=== PATIENT | female | born 1945 | race Caucasian/White ===

== ENCOUNTER 2021-07-20 09:41 | Emergency (ER) | payer MEDICARE, SELFPAY ==
[2021-07-20 09:59] VITALS: BP 208/86; PULSE 105; RESP 14; TEMP 36.3; O2SAT 98
--- NOTE | 2021-07-20 10:04 | ECG_ITS ---
[facility] Test Date: 2021-07-20 Pat Name: Nevin Ahumada Department: Room: Gender: Female Roofing Layer: : 1945 Requested By: Jason Driscoll Order Number: [id number] Reading MD: ALBERT ALEX Measurements Intervals [place] Rate: 79 P: 33 IL: 163 QRS: 3 QRSD: 85 T: 50 QT: 352 QTc: 405 Interpretive Statements SINUS RHYTHM MINIMAL VOLTAGE CRITERIA FOR LVH, CONSIDER NORMAL VARIANT [MEETS CRITERIA IN ONE OF: R(aVL), S(V1), R(V5), R(V5/V6)+S(V1)] Compared to ECG 07/30/2019 20:18:14 No significant changes Electronically Signed On 07-20-2021 15:40:42 CDT by ALBERT ALEX [email or web address] [email or web address].[employer]/store/[id number]
--- NOTE | 2021-07-20 10:22 | XR_ITS ---
WS: [id number] Portable AP upright chest, 07/20/2021 Clinical Data: chest pain Comparison: PA and lateral chest, 07/31/2015. Findings: No nodules, masses or effusions are seen. The heart is normal. The pulmonary vascularity is not increased. No pneumonia or pneumothorax is seen. The aortic arch and descending aorta show calci fication and mild tortuosity. There is a minimal dextroscoliosis of the lower thoracic spine. Monitor leads are on the chest wall. XR/XR chest 1V portable [id number] Impression: Atherosclerosis.
--- NOTE | 2021-07-20 10:23 | W.ED.CHESTPA ---
HPI - Chest Pain General: Chief Complaint: Chest Pain Stated Complaint: Heart Problems Time Seen by Provider: 07/20/21 09:54 History of Present Illness: HPI narrative: 75-year-old female comes in complaining of palpitations. She is. A Holter monitor next week she is also supposed to have a stress test and echo. She feels like it has been getting worse and was directed to the emergency room by her primary kiln labourer. MD complaint: chest pain and chest discomfort Onset (ago): week(s) Timing of current episode: episodic Prior episodes: Yes Onset: during rest Pain location: substernal and left chest Pain radiation: none Severity: mild Quality: aching and heaviness Relieving factors: nothing Exacerbating factors: nothing Associated symptoms: Deny abdominal pain, diaphoresis, dyspnea, fever(s), leg edema, nausea, palpitations, sense of impending doom, syncope or vomiting Review of Systems Const: Denies: fever(s) or diaphoresis ENMT: Denies: throat pain, ear or mastoid pain, nasal discharge or nasal congestion Card: Denies: palpitations or syncope Resp: Denies: dyspnea GI: Denies: abdominal pain, nausea or vomiting : Denies: flank pain, difficulty voiding, dysuria, urinary frequency or urinary urgency Skin/Breast: Denies: rash or pruritus Physical Exam Const: COMMON NORMALS: no acute distress GENERAL APPEARANCE: cooperative and comfortable ORIENTATION/CONSCIOUSNESS: Yes awake, Yes oriented to person, Yes oriented to place and Yes oriented to time HENMT: COMMON NORMALS: normocephalic, atraumatic and hearing grossly normal bilaterally HEAD & SCALP: normocephalic and atraumatic Neck/C-Spine: COMMON NORMALS: no JVD Resp: COMMON NORMALS: normal respiratory effort, No retractions, No use of accessory muscles and clear to auscultation bilaterally AUSCULTATION: clear to auscultation bilaterally Cardio: COMMON NORMALS: no JVD, regular rate, regular rhythm and No murmurs present (Cardio) RATE: regular rate RHYTHM: regular rhythm GI: COMMON NORMALS: Soft to palpation and No hepatosplenomegaly present AUSCULTATION: Yes normoactive bowel sounds PALPATION: Yes Soft to palpation, No Tenderness to palpation present (GI), No Guarding due to palpation present (GI) and Yes No hepatosplenomegaly present Extremity: COMMON NORMALS: normal to inspection, capillary refill normal, no clubbing, cyanosis or edema, no calf tenderness and no pedal edema Neuro: SENSORIUM/ORIENTATION: Yes oriented to person, Yes oriented to place and Yes oriented to time Skin: COMMON NORMALS: no rashes or lesions noted GENERAL SKIN EXAM: no rashes or lesions noted Course Vital Signs: Vital signs: Vital Signs Temperature 98.1 F 07/20/21 14:59 Pulse Rate 64 07/20/21 14:59 Respiratory Rate 18 07/20/21 14:59 Blood Pressure 168/98 07/20/21 14:59 Pulse Oximetry 98 07/20/21 14:59 MDM - Chest Pain MDM Narrative: Medical decision making narrative: Labs imaging and EKG reviewed as found on the chart. Discussed with the patient. Troponins negative think we can safely discharge home at this point reviewed her medicine list would like to have her on aspirin daily take 81 mg daily. She already has sublingual nitro. Complete the work-up as previously scheduled as an for an outpatient by her primary care physician worsening change symptoms return to emergency room Lab Data: Labs: Lab Results 07/20/21 07/20/21 07/20/21 10:42 10:42 10:42 WBC 5.7 10^3/uL 10^3/ uL (4.0-10.0) RBC 4.28 10^6/uL 10^6 /uL (4.1-5.3) Hgb 12.4 g/dL g/dL (11.5-15.3) Hct 39.2 % % (37.0-47.0) MCV 91.6 fl fl (81-99) MCH 29.0 pg pg (28.0-34.0) MCHC 31.6 g/dL g/dL (30.0-36.0) RDW 14.6 % % (12.1-15.1) Plt Count 380 10^3/cmm 10^3 /cmm (130-400) MPV 9.4 fL fL (7.4-10.4) Neut % (Auto) 44.3 % % Lymph % (Auto) 46.3 % % [place] % (Auto) 6.2 % % Eos % (Auto) 2.3 % % Baso % (Auto) 0.7 % % Neut # (Auto) 2.51 10^3/uL 10^3 /uL (1.8-7.7) Lymph # (Auto) 2.6 10^3/uL 10^3/ uL (0.8-4.8) Weston # (Auto) 0.4 10^3/uL 10^3/ uL (0.2-0.9) Eos # (Auto) 0.1 10^3/uL 10^3/ uL (0.0-0.8) Baso # (Auto) 0.0 10^3/uL 10^3/ uL (0.0-0.1) Nucleated RBC % (a uto) 0 % % Nucleated RBCs # 0.0 /100WBC /100W BC Sodium 139 mmol/L mmol/L (136-145) Potassium 3.9 mmol/L mmol/L (3.5-5.1) Chloride 100 mmol/L mmol/L (98-107) Carbon Dioxide 27 mmol/L mmol/L (22-29) Anion Gap 15.9 (5-19) BUN 17 mg/dL mg/dL (8-23) Creatinine 0.6 mg/dL mg/dL (0.5-0.9) GFR Calculation Not Reportable Glucose 95 mg/dL mg/dL (65-115) Calculated Osmolal ity 289 mOsm/kg mOsm/ kg (285-295) Calcium 9.6 mg/dL mg/dL (8.5-10.5) Total Bilirubin 0.4 mg/dL mg/dL (0.15-1.2) AST 19 U/L U/L (0-32) ALT 10 U/L U/L (0-33) Alkaline Phosphata se 89 IU/L IU/L (35-105) Creatine Kinase 69 U/L U/L (26-192) Troponin T Baselin e 8 ng/L ng/L (0-10) Troponin T 120 Min [place] Troponin T Total Protein 7.5 g/dL g/dL (6.6-8.7) Albumin 4.3 g/dL g/dL (3.5-5.2) Globulin 3.2 g/dL g/dL (1.3-4.6) Lipase 20 U/L U/L (13-60) 07/20/21 12:50 WBC RBC Hgb Hct MCV MCH MCHC RDW Plt Count MPV Neut % (Auto) Lymph % (Auto) [place] % (Auto) Eos % (Auto) Baso % (Auto) Neut # (Auto) Lymph # (Auto) [place] # (Auto) Eos # (Auto) Baso # (Auto) Nucleated RBC % (a uto) Nucleated RBCs # Sodium Potassium Chloride Carbon Dioxide Anion Gap BUN Creatinine GFR Calculation Glucose Calculated Osmolal ity Calcium Total Bilirubin AST ALT Alkaline Phosphata se Creatine Kinase Troponin T Baselin e Troponin T 120 Min [place] 6.91 ng/L ng/L (0-10) Delta Troponin T -1.09 ABS# L ABS# (0-10) Total Protein Albumin Globulin Lipase Discharge Plan Discharge Patient Disposition: Home Clinical Impression: Atypical chest pain, Heart palpitations Condition: Stable Prescriptions: New aspirin 81 mg tablet,delayed release (DR/EC) 81 mg PO DAILY Qty: 30 RF: 0 Discharge Orders: Discharge ED (Routine); Ordered 07/20/21 Ordered By: Jason Cornelius Referrals: Fred Gentile MD [Primary Care Provider] - Discharge Diet: Usual diet Discharge Activity: Limit activity as instructed Patient Instructions: Opioid Safety Activity Restrictions/Additional Instructions: Follow-up with scheduled work-up that Dr. Gentile has arranged for. If you have worsening symptoms you can return to the emergency room. Take 1 baby aspirin daily. Coding Level of Care Code ED Acoustical Installer for Delia Fwavani Exam Comprehensive
[2021-07-20 10:32] VITALS: BP 196/73; PULSE 82; RESP 19; O2SAT 100
--- NOTE | 2021-07-20 10:36 | PC.NURSE ---
PATIENT CONNECTED TO PEARL RESTORER.
[2021-07-20 10:50] LABS: Basophils % 0.7 %; Eosinophils # 0.1 10^3/uL (0.0-0.8); Eosinophils % 2.3 %; Hematocrit 39.2 % (37.0-47.0); Hemoglobin 12.4 g/dL (11.5-15.3); Lymphocytes # 2.6 10^3/uL (0.8-4.8); Lymphocytes % 46.3 %; Mean Corpuscular HGB Conc 31.6 g/dL (30.0-36.0); Mean Corpuscular Volume 91.6 fl (81-99); Mean Platelet Volume 9.4 fL (7.4-10.4); Monocytes # 0.4 10^3/uL (0.2-0.9); Monocytes % 6.2 %; Neutrophils # 2.51 10^3/uL (1.8-7.7); Neutrophils % 44.3 %; Nucleated Red Blood Cells % 0 %; Platelet Count 380 10^3/cmm (130-400); Red Blood Count 4.28 10^6/uL (4.1-5.3); Red Cell Distribution Width 14.6 % (12.1-15.1); White Blood Count 5.7 10^3/uL (4.0-10.0)
[2021-07-20 11:09] LABS: Alanine Aminotransferase 10 U/L (0-33); Albumin Level 4.3 g/dL (3.5-5.2); Alkaline Phosphatase 89 IU/L (35-105); Aspartate Amino Transferase 19 U/L (0-32); Blood Urea Nitrogen 17 mg/dL (8-23); Calcium 9.6 mg/dL (8.5-10.5); Carbon Dioxide 27 mmol/L (22-29); Chloride 100 mmol/L (98-107); Creatine Phosphokinase 69 U/L (26-192); Globulin 3.2 g/dL (1.3-4.6); Glucose 95 mg/dL (65-115); Lipase 20 U/L (13-60); Osmolality Calculated 289 mOsm/kg (285-295); Sodium 139 mmol/L (136-145); Total Bilirubin 0.4 mg/dL (0.15-1.2); Total Protein 7.5 g/dL (6.6-8.7)
[2021-07-20 11:11] LABS: Troponin(5th) Baseline 8 ng/L (0-10)
[2021-07-20 11:21] VITALS: BP 190/74; PULSE 64; RESP 17; O2SAT 98
[2021-07-20 11:23] LABS: Anion Gap 15.9 (5-19); Potassium 3.9 mmol/L (3.5-5.1)
--- NOTE | 2021-07-20 12:22 | ECG_ITS ---
[facility] Test Date: 2021-07-20 Pat Name: Nevin Ahumada Department: Room: Gender: Female Sdc Teacher: : 1945 Requested By: Jason Driscoll Order Number: [id number] Reading MD: ALBERT ALEX Measurements Intervals [place] Rate: 65 P: 16 IA: 170 QRS: 0 QRSD: 96 T: 14 QT: 404 QTc: 421 Interpretive Statements SINUS RHYTHM Compared to ECG 07/20/2021 10:08:31 No significant changes Electronically Signed On 07-20-2021 15:42:10 CDT by ALBERT ALEX [id number]
[2021-07-20 12:24] VITALS: BP 172/72; PULSE 61; RESP 17; O2SAT 99
[2021-07-20 12:57] VITALS: BP 172/72; PULSE 74; RESP 18; O2SAT 98
[2021-07-20 13:21] LABS: Troponin 5 2HR 6.91 ng/L (0-10)
[2021-07-20 13:27] LABS: Troponin 5 2HR Delta -1.09 ABS# (0-10)
[2021-07-20 14:59] VITALS: BP 168/98; PULSE 64; RESP 18; TEMP 36.7; O2SAT 98
== END 2021-07-20 15:01 | disposition home or self-care (01) ==
PROVIDERS: Emergency Provider Family Medicine; PCP Family Medicine
DX: R07.89 Other chest pain (principal); R00.2 Palpitations
CPT/HCPCS: 71045; 80053; 82550; 83690; 84484; 85025; 93005; 99284

== ENCOUNTER 2021-08-08 08:21 | Outpatient (CLI) | payer MEDICARE, SELFPAY ==
[2021-08-08 08:34] VITALS: BMI 32.7
--- NOTE | 2021-08-08 08:34 | ECG_ITS ---
[facility] Test Date: 2021-08-08 Pat Name: Nevin Ahumada Department: Room: Gender: Female Carrier Driver: : 1945 Requested By: Fred Pires Order Number: [id number] Pj MD: Festus Loyola M.D. Interpretive Statements NAME OF STUDY: LEXISCAN SESTAMIBI STRESS TEST INDICATION: [Chest Pressure, ] Procedure: At the baseline, the blood pressure was 171/67 mmHg with a heart rate of 78 bpm. The electrocardiogram showed normal sinus rhythm, normal axis with normal ST and T's. The Lexiscan was infused over a period of 20 seconds. A total of 0.4 mg of Lexiscan was infused. The stress phase was continued for a total of 5 minutes. Heart rate was at the end of stress phase was 93 bpm and a blood pressure of 167/66 mmHg. The EKG at the peak infusion revealed since normal sinus rhythm with no significant ST-T wave changes. PVCs were noted Sestamibi was injected 20 seconds after the Lexiscan infusion. Blood pressure at the end of recovery phase was 171/67 mmHg with a heart rate of 94 bpm. Conclusion: 1. Normal EKG response to Lexiscan infusion 2. No Lexiscan induced chest pain or cardiac arrhythmia. 3. Normal blood pressure and heart rate response. 4. Sestamibi/sestamibi perfusion scan pending; see separate report. Electronically Signed On 09-03-2021 10:33:43 CORN SHREDDER by Festus Loyola M.D. [id number]
--- NOTE | 2021-08-08 08:35 | USCV_ITS ---
Nevin Ahumada Age: 75 Gender: F : 1945 Exam Date: 08/08/2021 10:41 Ordering Phys: Fred Gentile MD Technologist: Exam Location: [facility] [place] Indication: Hypertension BP: 110 / 65 HR: 47 Rhythm: Sinus Technical Quality: Adequate MEASUREMENTS (Male / Female) Normal Values 2D ECHO LVOT Diameter 2.0 cm LV Ejection Fraction MOD 2C 69.6 % LV Ejection Fraction 2C AL 69.6 % LA Diameter 4.0 cm LA Width 3.7 cm LA Height 4.8 cm RA Width 3.3 cm RA Height 4.6 cm Aorta at Sinotubular Diameter 2.6 cm DOPPLER AV Peak Velocity 255.0 cm/s LVOT Peak Velocity 114.0 cm/s AV Area Cont Eq vti 1.4 cm squared AV Area Cont Eq pk 1.5 cm squared MV E' Velocity 14.0 cm/s TR Peak Velocity 150.0 cm/s TR Peak Gradient 9.0 mmHg TV Peak E Velocity 90.0 cm/s Right Atrial Pressure 3.0 mmHg Pulmonary Artery Systolic Pressu 12.0 mmHg FINDINGS Left Ventricle Normal left ventricular size, systolic function and mildly increased wall thickness, with no regional wall motion abnormalities. Left ventricular ejection fraction is estimated at 60-65 %. Normal diastolic function. Right Ventricle Normal right ventricular size and systolic function. Right ventricular systolic pressure 12 mmHg. Right Atrium Normal right atrial size. Right atrial pressure estimated at 3 mm Hg. Left Atrium Moderately increased left atrial size. Mitral Valve Mildly thickened mitral valve. No mitral valve stenosis. Mild- moderate posteriorly directed mitral valve regurgitation. Aortic Valve Mildly thickened and trilaeaflet aortic valve. Mild aortic valve stenosis, peak velocity 2.6 m/sec, peak gradient 26 mm Hg, mean gradient 13 mmHg, DELVIN 1.4 cm squared. Mild aortic valve regurgitation. Tricuspid Valve Structurally normal tricuspid valve. Trace to mild tricuspid valve regurgitation. Pulmonic Valve Pulmonic valve not well visualized. No pulmonary valve stenosis. Trace pulmonary valve regurgitation. Pericardium No pericardial effusion. Aorta Normal sized aortic root. Normal sized inferior vena cava with decreased respiratory variations. CONCLUSIONS 1. Normal left ventricular size, systolic function and mildly increased wall thickness, with no regional wall motion abnormalities. Left ventricular ejection fraction is estimated at 60-65 %. Normal diastolic function. 2. Normal right ventricular size and systolic function. 3. Mild aortic valve regurgitation. 4. Mild aortic valve stenosis, peak velocity 2.6 m/sec, peak gradient 26 mm Hg, mean gradient 13 mmHg, DELVIN 1.4 cm squared. 5. Mild-moderate posteriorly directed mitral valve regurgitation. 6. When compared to previous echocardiogram mitral and aortic regurgitation has worsened. Gemini Haddad MD (Electronically Signed) Final Date: 10 August 2021 05:36 S
--- NOTE | 2021-08-08 08:35 | NMCV_ITS ---
NM michelle perf SPECT r/s* [id number] Nevin Ahumada Age: 75 Gender: F : 1945 Exam Date: 08/08/2021 09:46 Ordering Phys: Fred Gentile MD Technologist: IMELDA Cheek Exam Location: [facility] Indications: CHEST PAIN STRESS TEST [facility] IMAGE PROTOCOL Rest/Stress 1 Lexiscan Day Radiopharmaceutical Dose (mCi) Administration Site Administered by Rest: Tc-99m 10.9 IV IMELDA Romeo Sestamibi Stress:Tc-99m 32.8 IV IMELDA Romeo Sestamibi Rest: 08-Aug-2021 60 Discovery 630 Stress: 08-Aug-2021 30 Discovery 630 0.4mg Lexiscan. Images obtained in supine and prone position. SPECT RESULTS Technical Quality: Excellent Raw Data Analysis: Normal Image Corrections: No attenuation or motion correction applied Summed Stress Score: 9 Summed Rest Score: 2 Summed Difference Score: 7 PERFUSION FINDINGS There is a moderate sized reversible perfusion defect in inferolateral and anterolateral patel. This is consistent with ischemia in these territories. FUNCTIONAL RESULTS (calculated via Gated SPECT) Stress Image LV EF (%): 72 Stress EDV (mL):90 TID: 1.07 Stress ESV (mL):25 FUNCTIONAL FINDINGS: There is normal left ventricular systolic function. IMPRESSIONS 1. Abnormal myocardial perfusion imaging with ischemia noted in inferolateral and anterolateral patel. 2. LV systolic function is normal. Festus Loyola MD (Electronically Signed) Final Date: 08 August 2021 12:58 S
[2021-08-08] MEDS: regadenoson 0.4 Mg/5 ml Syringe IVP (11:01)
[2021-08-08 12:39] VITALS: BP 171/67; PULSE 93
== END 2021-08-08 08:22 | disposition home or self-care (01) ==
LOC: CDL 08:22
PROVIDERS: PCP Family Medicine; Visit Provider Family Medicine
DX: R01.1 Cardiac murmur, unspecified (principal); R07.89 Other chest pain; R06.02 Shortness of breath; I10 Essential (primary) hypertension; I08.0 Rheumatic disorders of both mitral and aortic valves; I25.9 Chronic ischemic heart disease, unspecified
CPT/HCPCS: 78452; 93017; 93306; A9500; J2785

== ENCOUNTER → 2021-09-28 09:24 | Outpatient (BNVA) | payer MEDICARE, SELFPAY | PROVIDERS: PCP Family Medicine; Visit Provider Family Medicine | DX: Z20.822 Contact with and (suspected) exposure to COVID-19 (principal); Z01.812 Encounter for preprocedural laboratory examination | CPT/HCPCS: 87635 ==

== ENCOUNTER 2021-10-04 09:50 | Outpatient (CLI) | payer MEDICARE, SELFPAY ==
--- NOTE | 2021-10-04 11:31 | PFTS_ITS ---
Date of Study:10/04/21 Date of Dictation: 10/04/2021 MECHANICS: Prebronchodilator forced vital capacity (FVC) is normal. Prebronchodilator forced expiratory volume in one second (FEV1) is normal. FEV1/FVC is normal. There is no postbronchodilator study FLOW VOLUME LOOP: normal. LUNG VOLUMES: TLC is normal. RV is normal. DIFFUSING CAPACITY FOR CARBON MONOXIDE: normal. . INTERPRETATION: The PFTs are normal. MTDD
== END 2021-10-04 09:51 | disposition home or self-care (01) ==
LOC: RT 09:51
PROVIDERS: PCP Family Medicine; Visit Provider Family Medicine
DX: R06.09 Other forms of dyspnea (principal)
CPT/HCPCS: 94010; 94726; 94729

== ENCOUNTER 2021-10-09 13:55 | Observation (INO) | payer MEDICARE, SELFPAY ==
[2021-10-03 09:26] LABS: Basophils # 0.1 10^3/uL (0.0-0.1); Basophils % 1.2 %; Eosinophils # 0.3 10^3/uL (0.0-0.8); Eosinophils % 5.7 %; Hematocrit 35.2 % (37.0-47.0); Hemoglobin 10.6 g/dL (11.5-15.3); Lymphocytes # 2.6 10^3/uL (0.8-4.8); Lymphocytes % 51.8 %; Mean Corpuscular HGB Conc 30.1 g/dL (30.0-36.0); Mean Corpuscular Hemoglobin 26.7 pg (28.0-34.0); Mean Corpuscular Volume 88.7 fl (81-99); Mean Platelet Volume 8.4 fL (7.4-10.4); Monocytes # 0.4 10^3/uL (0.2-0.9); Monocytes % 8.1 %; Neutrophils # 1.63 10^3/uL (1.8-7.7); Nucleated Red Blood Cells % 0 %; Platelet Count 437 10^3/cmm (130-400); Red Blood Count 3.97 10^6/uL (4.1-5.3); Red Cell Distribution Width 14.2 % (12.1-15.1); White Blood Count 4.9 10^3/uL (4.0-10.0)
[2021-10-03 09:39] LABS: INR 0.93 (0.83-1.21); Prothrombin Time (Patient) 12.7 Seconds (12.0-15.1)
[2021-10-03 09:46] LABS: Anion Gap 16.3 (5-19); Blood Urea Nitrogen 13 mg/dL (8-23); Calcium 8.6 mg/dL (8.5-10.5); Carbon Dioxide 22 mmol/L (22-29); Chloride 106 mmol/L (98-107); Glucose 91 mg/dL (65-115); Osmolality Calculated 290 mOsm/kg (285-295); Potassium 4.3 mmol/L (3.5-5.1); Sodium 140 mmol/L (136-145)
[2021-10-09] VITALS (29 sets, daily range): BP systolic 127–207; BP diastolic 57–103; PULSE 62–96; RESP 6–26; TEMP 36.6–36.8; O2SAT 94–97; BMI 34.1
--- NOTE | 2021-10-09 06:00 | XACV_ITS ---
Ht: 150 cm Wt: 77 kg BSA: 1.82 m2 Gender: Female : 1945 Any Known Allergies: Other Exam Priority: Routine Procedure(s): Procedure Description: Diagnostic procedure Procedure Description: PCI procedure Procedure Description: Drug Eluting Coronary Stent Procedure Description: PTCA Procedure Description: Miscellaneous Procedure Description: ACT Procedure Description: Coronary Angiography Gurpreet MARIO; Diagnostic Cath Status: Elective Diagnostic Findings * Left Main has no disease. * Circumflex has no disease. * Mid Left Anterior Descending: minimal 30% stenosis, MIKA: 3 flow. * Mid Right Coronary Artery: significant 80% stenosis, MIKA: 3 flow. * Coronary angiography shows right dominance. Interventional Findings * Mid Right Coronary Artery: 80% stenosis treated with a AB MINI TREK 2.00X12 RX BALLOON, TARSHA Boss JOSE 2.75X12 CORNEL, and MDAlpesh FARIA EUPHORA RX 3.73N33WS BALLOON. 0% residual stenosis, MIKA: 3 flow. Conclusions 1. There is significant coronary artery disease with two vessel disease. 2. Mid Right Coronary Artery was treated with a Balloon, Drug Eluting Stent, and Balloon. Recommendations * Continue current medical management and risk factor modification. Pressures Phase:Rest AO : 165 / 57 ( 97 ) @ 8:42:00 AM 82 / 39 ( 54 ) @ 8:52:00 AM 117 / 49 ( 77 ) @ 8:53:00 AM 103 / 42 ( 63 ) @ 8:59:00 AM Clinical Evaluation EBL: 5mL-10mL Procedural Details Procedure Consent Obtained. Pre-Procedure Time Out. Identified patient by full name and date of as verbalized by the patient/guarantor. Does the consent match the physician's order: Yes. Accurate & Complete Informed Consent: Yes. Inpatient/Outpatient History & Physical on Chart: Yes. If H&P is completed, is and addenduem needed: No; If yes, is the addendum complete: N/A. Visualize and Verify Site with Patient/Guarantor: N/A. Relevant Radiology Images available: N/A. Pre-op teaching completed and patient verbalized understanding. The risks, benefits, and alternatives of sedation and/or procedure were discussed by physician. The patient agrees to continue. Willis Sim will be donor technician and Amparo Munoz RN will be circulating nurse. Procedure started. [facility] Clinical Fraility Score: 4: Vulnerable. Solvent Process Extractor Operator Indications: New Onset Angina, abnormal stress test. Chest Pain Symptom Assessment: Typical Angina Symptoms. Cardiovascular Instability: No. Correct patient, site and procedure confirmed by cath team. PERRLA. Strong, equal hand cake washer bilaterally. Lungs clear x 5 lobes. IV Site on Arrival: 20 gauge in the left anticubital. IV Fluids: 0.9% NaCl at KVO. 0 mL infused prior to lab clerk. Pre Procedural Pulses: bilateral dorsalis pedis was 3+. Pre Procedural Pulses: bilateral posterior tibial was 3+. Pre Procedural Pulses: bilateral radial was 3+. Oxygen started at 2liters/min via nasal canula. bilateral groins was prepped with chloroprep then draped in the usual sterile fashion. Physician arrived. Equipment: 6F - Femoral. Cardiac Cath Pack. ACIST Manifold Kit Model BT 2000. Heparinized Saline (2 units/mL), 1000 mL bag. Kit, Micropuncture. Baseline sample Acquired. HR: 94 BPM. Physician scrubbed in. Immediate Pre-Procedure Time Out. Correct Patient: Yes; Correct Procedure: Yes; Correct Site: Yes; Correct Patient Position: Yes; Correct Supplies: Yes; Dried Flammable Prep: Yes; Blood Products Available: N/A;. Lidocaine 1% infiltrated to the right groin. Arterial access obtained with micropuncture set. A 5 belarusian JL4 catheter in over wire. Multiple views taken of left coronary artery. Catheter removed over the standard wire. A 5 belarusian JR4 catheter in over wire. Multiple views taken of right coronary artery. Inventory is CRD 6FR JR 4 GUIDE 100cm. Catheter removed over the standard wire. Inventory is [employer] [place] XT .014 190cm Str. Guidewire. 6 belarusian JR 4 guide catheter was inserted over the wire. [place] guidewire was advanced through the guide catheter to lesion in the mid RCA. Inflation number : 1 A AB MINI TREK 2.00X12 RX BALLOON was prepped and advanced across the Mid RCA , then inflated to 0 THOMAS for 0:13 seconds. Inflation number: 2 The AB MINI TREK 2.00X12 RX BALLOON was reinflated across the Mid RCA, to 18 THOMAS for 0:12 seconds. Balloon out. Inflation Number : 3 A MDT R JOSE 2.75X12 CORNEL -Lot Number# [id number] exp date 06/19/2024 was prepped and advanced across the Mid RCA. The stent was deployed at 12 THOMAS for 0:23 seconds. Stent balloon out over wire. Results checked. Inflation number : 4 A MDT NC EUPHORA RX 3.76K01EU BALLOON was prepped and advanced across the Mid RCA , then inflated to 12 THOMAS for 0:21 seconds. Inflation number: 5 The MDT NC EUPHORA RX 3.65E10SB BALLOON was reinflated across the Mid RCA, to 10 THOMAS for 0:15 seconds. Balloon out. Results checked. ACT drawn. Results 186 seconds. Therapeutic limits - pre-heparin administration 90-150 seconds and monitoring heparin during a vascular procedure >250 seconds. Wire out. Guide catheter out. A Right femoral angiogram was performed to determine safe placement of closure device. Lidocaine 1% infiltrated to the right groin. A Perclose (ShotSpotter) was successful obtaining hemostatsis at the Right Femoral artery insertion site. Perclose placed without complications. No signs or symptoms of hematoma noted. Sterile dressing applied per usual sterile fashion. Post Procedure: Pulses reassessed and unchanged. PERRLA. Strong, equal hand cake washer bilaterally. Physician scrubbed out. No VTE prophylaxis required. Medication's Wasted: Lidocaine 1% = 10 mL. Medication's Wasted: Nitro = 49.8 mg. Medication's Wasted: Heparin = 1000 units. Medication's Wasted: Other = versed 1 mg. Medication's Wasted: Other = fentanyl 50 mcg. Total IV fluids: 75 mL. Contrast type used: Omnipaque 300 mg/mL, 150 mL bottle. PCI Indication: New Onset Angina. Complications: none. Estimated blood loss: 5mL-10mL. Responsiveness - Normal response to verbal stimuli; alert and oriented, PERRLA. Airway - Unaffected, no intervention required; spontaneous ventilation. Circulation: W/N/L, pulses unchanged. Nausea/Vomiting: No. Procedure completed. Patient transferred by stretcher to CPRU. Vital chart was stopped. Access Site Site: Right Femoral artery Sheath Size: 6 Fr Hemostasis Method: Perclose (ShotSpotter) Hemostasis Success: Successful Procedure Medications Start: 10:23 AM Stop: 10:23 AM Medication: Versed Amount: 1 mg Route: I.V. Start: 10:23 AM Stop: 10:23 AM Medication: Fentanyl Amount: 50 mcg Route: I.V. Start: 10:49 AM Stop: 10:49 AM Medication: Heparin Amount: 7000 units Route: I.V. Start: 10:49 AM Stop: 10:49 AM Medication: Versed Amount: 1 mg Route: I.V. Start: 10:53 AM Stop: 10:53 AM Medication: Aggrastat 12.5 mg/250 mL Amount: 38 ml Route: I.V. bolus Start: 10:54 AM Stop: 10:54 AM Medication: Aggrastat 12.5 mg/250 mL Amount: 13.7 ml/hr Route: I.V. drip Start: 10:59 AM Stop: 10:59 AM Medication: Nitrogylcerin Amount: 200 mcg Route: I.C. Start: 11:18 AM Stop: 11:18 AM Medication: Heparin Amount: 3000 units Route: I.V. Start: 11:28 AM Stop: 11:28 AM Medication: Plavix Amount: 600 mg Route: P.O. I, the attending physician, have reviewed and verified all procedure medications. Yes, all medications given per verbal order History/Risk Factors Hypertension: Yes Dyslipidemia: No Peripheral Arterial Disease (PAD): No Myocardial Infarction (ND): No Obesity: No Renal Disease: No Tobacco Use: Never Prior Interventions PCI: No CABG: No Valve Surgery: No Report Signatures Finalized by King Vázquez MD on 10/16/2021 05:04 PM
[2021-10-09] MEDS: diphenhydrAMINE 50 mg Capsule PO (09:33)
--- NOTE | 2021-10-09 10:27 | P.HPUD_ITS ---
Surgery/Procedure H&P Update DATE OF PROCEDURE: October 09, 2021 DATE H&P PERFORMED: 09/24/21 H&P UPDATE INFORMATION: I have reviewed H&P completed within last 30 days, I have examined patient prior to procedure and No changes to prior documentation PREOP DIAGNOSIS: Chest pain/shortness of breath/abnormal stress test PLANNED PROCEDURE: Operation Date: 10/09/21 07:00 Proposed Procedures p Cardiac Catheterization(Left) - King Vázquez MD PATIENT REASSESSED PRIOR TO SEDATION, WITH NO CHANGE NOTED: Yes PHYSICAL EXAM: alert and oriented x 3 AIRWAY EVAL/ANESTHESIA PLAN: ASA II, Risks, benefits & alternatives of sedation and/or procedure discussed and Patient agrees to continue as planned ADDITIONAL INFORMATION: Patient has been explained all risk benefit and alternative for the procedure. Patient understand risk for stroke contrast- induced nephropathy leading to renal failure major minor bleed infection hematoma blood in the urine stool urgent emergent bypass surgery vascular surgery. Patient is a candidate for DAPT she would like to proceed with it
--- NOTE | 2021-10-09 11:48 | SUR.PHASEI ---
HOLDING NOTE Patient to CPRU post coronary intervention via the right femoral approach. Site perclosed with dressing in place at this time- CDI. Verbal post cath intstructions given. Family at bedside- updated by md on finding. No new orders received. Call light within reach.
--- NOTE | 2021-10-09 11:55 | SUR.PHASEI ---
post cath IV fluids 0.9% ns at 100 ml/hr as ordered.
--- NOTE | 2021-10-09 14:36 | SUR.PHASEI ---
transfer Patient transferred to CSU 106 via bed. No change in assessment. Report to karen Craven RN.
[2021-10-09 16:26] LABS: Partial Thromboplastin Time 55.9 SECONDS (23.9-36.7)
[2021-10-09] MEDS: aspirin 81 mg EC Tablet PO (17:39)
[2021-10-09] MEDS: potassium chloride ER 10 mEq Tablet PO (17:39)
[2021-10-09] MEDS: isosorbide mononitrate ER 30 mg Tablet 15 MG PO (19:59)
[2021-10-09] MEDS: atorvastatin 40 mg Tablet PO (19:59)
[2021-10-10] VITALS (9 sets, daily range): BP systolic 105–136; BP diastolic 55–67; PULSE 74–94; RESP 18–24; TEMP 36.7–37.1; O2SAT 92–97
[2021-10-10 07:52] LABS: Basophils % 0.6 %; Eosinophils # 0.1 10^3/uL (0.0-0.8); Eosinophils % 1.2 %; Hematocrit 26.8 % (37.0-47.0); Hemoglobin 8.6 g/dL (11.5-15.3); Lymphocytes # 2.1 10^3/uL (0.8-4.8); Lymphocytes % 42.9 %; Mean Corpuscular HGB Conc 32.1 g/dL (30.0-36.0); Mean Corpuscular Hemoglobin 27.4 pg (28.0-34.0); Mean Corpuscular Volume 85.4 fl (81-99); Mean Platelet Volume 9.3 fL (7.4-10.4); Monocytes # 0.5 10^3/uL (0.2-0.9); Monocytes % 10.5 %; Neutrophils # 2.16 10^3/uL (1.8-7.7); Neutrophils % 44.6 %; Nucleated Red Blood Cells % 0 %; Platelet Count 315 10^3/cmm (130-400); Red Blood Count 3.14 10^6/uL (4.1-5.3); Red Cell Distribution Width 14.6 % (12.1-15.1); White Blood Count 4.9 10^3/uL (4.0-10.0)
[2021-10-10 08:11] LABS: Anion Gap 14.8 (5-19); Blood Urea Nitrogen 16 mg/dL (8-23); Calcium 7.8 mg/dL (8.5-10.5); Carbon Dioxide 21 mmol/L (22-29); Chloride 108 mmol/L (98-107); Glucose 87 mg/dL (65-115); Osmolality Calculated 291 mOsm/kg (285-295); Potassium 3.8 mmol/L (3.5-5.1); Sodium 140 mmol/L (136-145)
--- NOTE | 2021-10-10 09:22 | PC.CHAP ---
Pastoral Care Encounter/Spiritual Assessment Type of Contact [] Declined electronic equipment maint tech visit [] Patient/Family/Request visit [] Outpatient visit [] Follow-up visit [] Physician referral [] Code/Alert [x] Routine visit [] Staff referral [] Actively dying [] Patient sleeping [] Family support [] [] Out of room [] Palliative care [] [] Receiving care in room [] Pre-surgical visit [] Trauma [] Long length of stay [] ICU visit [] Other: Relational/Emotional Strength [] Patient feels connected with others/family/visitors/staff [] Distress [] Loneliness/isolation [] Abandonment Spirituality of Patient [] Person of Ricarda [] Attends Mosque of their Ricarda [] Believes in Prayer [] Reads Bible or Pentecostal materials [] There are Spiritual issues to be addressed Leather Whitener Interventions [x] Prayer [x] Active listening [x] Non-anxious presence [x] Spiritual/emotional support [] Crisis/trauma care [] Spiritual counseling [] Bereavement support [] Provided bereavement packet [] Provided Bible/devotional materials [] Provided toy/stuffed animal, coloring book to patient or family member [] Provided Communion [] Anointing/[place] [] Salvation [x] Completed spiritual assessment [] Other: Impact on Illness or Injury [] Angry [] Fearful [] Anxious [] Often cries [] Exhaustion [] Unable to work [] Unable to attend sabianist [] Unable to walk/stand [] Unable to read [] Unable to drive [] Unable to eat/drink [] Unable to sleep [] Unable to be with family [] Patient intubated [] Other: Summary patient feeling better. Time spent with patient 5 min
[2021-10-10] MEDS: isosorbide mononitrate ER 30 mg Tablet 15 MG PO (09:50)
[2021-10-10] MEDS: levothyroxine 112 mcg Tablet PO (09:50)
[2021-10-10] MEDS: clopidogrel 75 mg Tablet PO (09:50)
[2021-10-10] MEDS: aspirin 81 mg EC Tablet PO (09:50)
[2021-10-10] MEDS: potassium chloride ER 10 mEq Tablet PO (09:50)
[2021-10-10] MEDS: ascorbic acid 500 mg Tablet PO (09:50)
[2021-10-10] MEDS: montelukast sodium 10 mg Tablet PO (09:50)
[2021-10-10] MEDS: omega-3 fatty acids 1,000 mg Capsule 1000 MG PO (09:50)
[2021-10-10] MEDS: metoprolol succinate ER (24 HR) 25 mg Tablet 12.5 MG PO (09:52)
[2021-10-10] MEDS: cholecalciferol (vitamin D3) 1,000 unit Tablet 1000 UNIT PO (09:52)
[2021-10-10] MEDS: hydroCHLOROthiazide 25 mg Tablet PO (09:52)
[2021-10-10] MEDS: pantoprazole DR 40 mg Tablet PO (09:52)
[2021-10-10] MEDS: amlodipine 5 mg Tablet PO (09:52)
[2021-10-10 15:57] LABS: Hematocrit 27.3 % (37.0-47.0); Hemoglobin 8.5 g/dL (11.5-15.3)
--- NOTE | 2021-10-10 16:05 | PC.NURSE ---
pt reported to rn this morning that she had a stool last night that was black and looked like tar .instructed to save specimen for rn should she have another bm.h+h to be repeated per dr cramer.
--- NOTE | 2021-10-10 19:13 | PM.PN ---
Subjective Subjective: Interval history: For chest pain and abnormal stress test patient underwent coronary angiogram she was noted to have significant mid RCA stenosis treated with single drug-eluting stent. This morning patient passed black tarry stools and her hemoglobin dropped to 8.6. Therefore we are planning to keep her overnight will increase PPI. At this point she is stable I will continue Plavix and low-dose aspirin. Vitals/I&O/Wt Last Vital Signs Temp 98.0 F 10/10/21 16:00 Pulse 94 10/10/21 16:00 Resp 20 H 10/10/21 16:00 BP 136/57 10/10/21 16:00 Pulse Ox 97 10/10/21 16:00 10/10/21 10/10/21 10/10/21 06:59 14:59 22:59 Intake Total 200 / 1800 480 / 480 Balance 200 / 1800 480 / 480 Weight last 48 hrs Weight 169 lb Physical Exam Narrative: EXAM NARRATIVE: GENERAL: Patient is alert, awake and oriented x3. NECK: No jugular vein distension. HEENT: No cyanosis. No icterus. No pallor. HEART: Regular S1 and S2. No murmur, rub or gallop. LUNGS: Clear to auscultate bilaterally. ABDOMEN: Soft, nontender and nondistended. Positive bowel sounds. No guarding, rebound or tenderness. CENTRAL NERVOUS SYSTEM: Grossly nonfocal. EXTREMITIES: Lower extremities without edema bilaterally. Const: COMMON NORMALS: alert Neuro: SENSORIUM/ORIENTATION: Yes alert Data : 10/10/21 15:44 10/10/21 07:22 A&P Assessment and plan (1) CAD (coronary artery disease): Status post PCI to mid RCA for abnormal stress test and angina. Continue aspirin statin will increase beta-selwyn since patient heart rate is on the higher side. Status: Acute Qualifiers: Coronary Disease-Associated Artery/Lesion type: [place] artery [place] vs. transplanted heart: [place] heart Associated angina: without angina Qualified Code(s): I25.10 - Atherosclerotic heart disease of [place] coronary artery without angina pectoris (2) GI bleed: I will increase Protonix to twice daily, will monitor H&H Status: Acute Qualifiers: GI bleed type/associated pathology: unspecified gastrointestinal hemorrhage type Qualified Code(s): K92.2 - Gastrointestinal hemorrhage, unspecified (3) Aortic stenosis: Stable. Status: Acute Qualifiers: Cardiac valve disease etiology: nonrheumatic Qualified Code(s): I35.0 - Nonrheumatic aortic (valve) stenosis (4) HTN (hypertension): Well-controlled continue current regimen Status: Acute Qualifiers: Hypertension type: primary hypertension Qualified Code(s): I10 - Essential (primary) hypertension Attestations Medical Necessity Statement*: Patient require continuation hospitalization for above defined care. Coding Level of Care Code Acute Hourly Sign Language Interpreter for [facility] Fwd Diagnoses CAD (coronary artery disease) I25.10 Coronary Disease-Associated Artery/Lesion type: [place] artery [place] vs. transplanted heart: [place] heart Associated angina: without angina GI bleed K92.2 GI bleed type/associated pathology: unspecified gastrointestinal hemorrhage type Aortic stenosis I35.0 Cardiac valve disease etiology: nonrheumatic HTN (hypertension) I10 Hypertension type: primary hypertension
--- NOTE | 2021-10-10 19:27 | PC.NURSE ---
Received report from GRETA Galindo. Patient resting in bed watcing TV. Patient is s/p [facility] with right femoral access. Dressing in place to right groin remains c,d,i with no s/s of bleeding or hematoma formation observed. Discussed plan for the night to include medications: Lipitor, Isosorbide and Restoril. Patient verbalized complete understanding. Patient denies all pain. No distress observed.
--- NOTE | 2021-10-10 20:00 | PC.NURSE ---
pt kept for continued observation due to change in hgb and hct.no further bm's this shift
[2021-10-10] MEDS: atorvastatin 40 mg Tablet PO (20:34)
[2021-10-10] MEDS: temazepam 15 mg Capsule PO (20:34)
[2021-10-11] VITALS (9 sets, daily range): BP systolic 127–160; BP diastolic 47–92; PULSE 67–85; RESP 14–19; TEMP 36.7–36.9; O2SAT 94–97
--- NOTE | 2021-10-11 06:18 | PC.NURSE ---
Shift Note Frequent safety and comfort rounds continue. Orders and/or nursing care completed as indicated. Patient monitored for response to intervention and treatment(s). Education provided includes lipitor and restoril. Patient verbalized understanding. Patient reports feeling better and no BM through the night. Patient is s/p C with right groin access. Dressing in place to site remains c,d,i with no s/s of bleeding or hematoma formation observed. Patient denies any pain or needs. No distress observed. Will continue to monitor.
[2021-10-11 07:28] LABS: Basophils % 0.5 %; Eosinophils # 0.1 10^3/uL (0.0-0.8); Hematocrit 27.1 % (37.0-47.0); Hemoglobin 8.6 g/dL (11.5-15.3); Lymphocytes # 1.6 10^3/uL (0.8-4.8); Lymphocytes % 28.1 %; Mean Corpuscular HGB Conc 31.7 g/dL (30.0-36.0); Mean Platelet Volume 9.2 fL (7.4-10.4); Monocytes # 0.5 10^3/uL (0.2-0.9); Monocytes % 8.8 %; Neutrophils # 3.36 10^3/uL (1.8-7.7); Neutrophils % 60.4 %; Nucleated Red Blood Cells % 0 %; Platelet Count 286 10^3/cmm (130-400); Red Blood Count 3.19 10^6/uL (4.1-5.3); Red Cell Distribution Width 14.5 % (12.1-15.1); White Blood Count 5.6 10^3/uL (4.0-10.0)
[2021-10-11] MEDS: metoprolol succinate ER (24 HR) 25 mg Tablet PO (09:02)
[2021-10-11] MEDS: ascorbic acid 500 mg Tablet PO (09:02)
[2021-10-11] MEDS: levothyroxine 112 mcg Tablet PO (09:03)
[2021-10-11] MEDS: amlodipine 5 mg Tablet PO (09:03)
[2021-10-11] MEDS: omega-3 fatty acids 1,000 mg Capsule 1000 MG PO (09:04)
[2021-10-11] MEDS: clopidogrel 75 mg Tablet PO (09:04)
[2021-10-11] MEDS: pantoprazole DR 40 mg Tablet PO (09:04)
[2021-10-11] MEDS: cholecalciferol (vitamin D3) 1,000 unit Tablet 1000 UNIT PO (09:04)
[2021-10-11] MEDS: aspirin 81 mg EC Tablet PO (09:04)
[2021-10-11] MEDS: montelukast sodium 10 mg Tablet PO (09:04)
--- NOTE | 2021-10-11 14:23 | PM.DCS ---
Discharge Providers Date of Admission: 10/09/21 13:55 Date of Discharge: October 11, 2021 Attending Provider at Admission: King Vázquez MD Attending Provider at Discharge: King Vázquez MD Primary Care Provider: Fred Gentile MD Diagnoses at Discharge Discharge Diagnosis (1) CAD (coronary artery disease): Status: Acute Qualifiers: Associated angina: without angina Coronary Disease-Associated Artery/Lesion type: [place] artery [place] vs. transplanted heart: [place] heart Qualified Code(s): I25.10 - Atherosclerotic heart disease of [place] coronary artery without angina pectoris (2) GI bleed: Qualifiers: GI bleed type/associated pathology: unspecified gastrointestinal hemorrhage type Qualified Code(s): K92.2 - Gastrointestinal hemorrhage, unspecified (3) Aortic stenosis: Status: Acute Qualifiers: Cardiac valve disease etiology: nonrheumatic Qualified Code(s): I35.0 - Nonrheumatic aortic (valve) stenosis (4) HTN (hypertension): Status: Acute Qualifiers: Hypertension type: primary hypertension Qualified Code(s): I10 - Essential (primary) hypertension Reason for Visit Reason for Visit: 12955 r94.39 Hospital Course Hospital Course or chest pain and abnormal stress test patient underwent coronary angiogram she was noted to have significant mid RCA stenosis treated with single drug-eluting stent. Last morning patient was noted to have black tar-like stool and GI bleed with mild drop in hemoglobin. She was started on Protonix and observed. Aspirin. Continued the Plavix. This morning she appeared to be stable doing fine from a cardiovascular perspective denies any more blood in the urine stool. Patient think that she is doing fine she would like to go home. Patient has been advised to keep an eye on the urine or stool if she noticed any bright red blood per rectum or black tarry like stools she should let us know. Physical Exam Narrative: EXAM NARRATIVE: GENERAL: Patient is alert, awake and oriented x3. NECK: No jugular vein distension. HEENT: No cyanosis. No icterus. No pallor. HEART: Regular S1 and S2. No murmur, rub or gallop. LUNGS: Clear to auscultate bilaterally. ABDOMEN: Soft, nontender and nondistended. Positive bowel sounds. No guarding, rebound or tenderness. CENTRAL NERVOUS SYSTEM: Grossly nonfocal. EXTREMITIES: Lower extremities without edema bilaterally. Const: COMMON NORMALS: alert Neuro: SENSORIUM/ORIENTATION: Yes alert Discharge Data Data Completed and Pending: Pending at discharge Category Date Time Status RADIO COMMUNICATIONS MECHANICIAN request for service Routin e Exams 10/09/21 06:00 Taken Labs from last 24 hours 10/11/21 10/10/21 07:00 15:44 WBC 5.6 RBC 3.19 L Hgb 8.6 L 8.5 L Hct 27.1 L 27.3 L MCV 85.0 MCH 27.0 L MCHC 31.7 RDW 14.5 Plt Count 286 MPV 9.2 Neut % (Auto) 60.4 Lymph % (Auto) 28.1 [facility] % (Auto) 8.8 Eos % (Auto) 2.0 Baso % (Auto) 0.5 Neut # (Auto) 3.36 Lymph # (Auto) 1.6 [facility] # (Auto) 0.5 Eos # (Auto) 0.1 Baso # (Auto) 0.0 Nucleated RBC % (a uto) 0 Nucleated RBCs # 0.0 Vitals: Last Vital Signs Temp 98.1 F 10/11/21 10:44 Pulse 72 10/11/21 10:44 Resp 14 10/11/21 10:44 BP 133/57 10/11/21 10:49 Pulse Ox 95 10/11/21 09:36 Discharge Plan Discharge Patient Disposition: Home Condition: Stable Prescriptions: New clopidogrel 75 mg Tablet 75 mg PO DAILY Qty: 90 RF: 4 pantoprazole 40 mg tablet,delayed release (DR/EC) 40 mg PO DAILY 56 Days Qty: 56 RF: 2 Continued atorvastatin 40 mg tablet 40 mg PO DAILY RF: 0 oxybutynin chloride 5 mg tablet extended release 24hr 5 mg PO DAILY RF: 0 levothyroxine 112 mcg capsule 112 mcg PO DAILY RF: 0 raloxifene [Evista] 60 mg tablet 60 mg PO DAILY RF: 0 enalapril-hydrochlorothiazide 10-25 mg tablet 1 tab PO DAILY RF: 0 amlodipine 10 mg tablet 5 mg PO DAILY RF: 0 omeprazole 20 mg capsule,delayed release(DR/EC) 20 mg PO DAILY RF: 0 potassium chloride 10 mEq tablet extended release 10 meq PO DAILY RF: 0 montelukast 10 mg tablet 10 mg PO DAILY RF: 0 acetaminophen [Tylenol Arthritis Pain] 650 mg tablet extended release 650 mg PO Q12H PRN (Reason: joint pain) RF: 0 albuterol sulfate 90 mcg/actuation HFA aerosol inhaler 2 puff inhalation Q6H PRN (Reason: shortness of breath) RF: 0 nitroglycerin [Nitrostat] 0.4 mg tablet, sublingual 0.4 mg sublingual Q5M PRN (Reason: Chest Pain) RF: 0 furosemide 20 mg tablet 20 mg PO DAILY PRN (Reason: Edema) RF: 0 cholecalciferol (vitamin D3) 25 mcg (1,000 unit) capsule 25 mcg PO DAILY RF: 0 ascorbic acid (vitamin C) 500 mg tablet 500 mg PO DAILY RF: 0 vitamin B complex [B Complex-Vitamin B12] Tablet 1 tab PO DAILY RF: 0 glucosamine-chondroitin 900 mg tablet 900 mg PO DAILY RF: 0 metoprolol succinate 25 mg tablet extended release 24 hr 12.5 mg PO DAILY Qty: 45 RF: 3 aspirin 81 mg tablet,delayed release (DR/EC) 81 mg PO DAILY Qty: 30 RF: 0 Discontinued omega 9-[id number]-ief-fish oil [Fish Oil] 1,200 (144-216) mg capsule 1 cap PO DAILY RF: 0 isosorbide mononitrate 30 mg tablet extended release 24 hr 15 mg PO BID Qty: 90 RF: 3 Discharge Orders: Discharge Order (Routine); Ordered 10/11/21 Ordered By: King Vázquez Referrals: King Vázquez MD [Physician] - 11/20/21 1:30 pm ( Your December [address] Vázquez has been changed You have a cardiology followup with Dr. Vázquez at [facility] on November 20 at 1:30pm) Yamila Myers FNP [Nurse Practitioner] - 10/16/21 2:15 pm (You have a post procedure followup with JI Marcos at [facility] on October 16 at 2:15pm) Discharge Diet: Cardiac Patient Instructions: Clopidogrel (By mouth) (Plavix), Pantoprazole (By mouth) (Protonix), Coronary Intravascular Stent Placement (DC), Post Angiogram Home Care Instructions Activity Restrictions/Additional Instructions: Please see Ms. Yamila Myers early next week, check CBC on 16 October for hemoglobin. Please see Dr. Vázquez in 4 weeks. If you notice black tar-like stools to call Dr. Vázquez's office please do not stop Plavix until told since you have a stent and it can clogged. However in case of viable fresh blood in the urine stool and dark stool go to emergency room or call Dr. Vázquez's office. Discharge Attestations Time Spent in Discharge Care*: greater than 30 min Specific Discharge Activities: educating patient Quality Metrics Clinical Quality Measures During this hospital stay, did patient experience: None Coding Level of Care Code Established Pt Acute Chg FW DC note Patient Type Established History Detailed Exam Detailed Medical Decision Making Moderate Complexity Diagnoses CAD (coronary artery disease) I25.10 Associated angina: without angina Coronary Disease-Associated Artery/Lesion type: [place] artery [place] vs. transplanted heart: [place] heart GI bleed K92.2 GI bleed type/associated pathology: unspecified gastrointestinal hemorrhage type Aortic stenosis I35.0 Cardiac valve disease etiology: nonrheumatic HTN (hypertension) I10 Hypertension type: primary hypertension
--- NOTE | 2021-10-11 16:24 | PC.NURSE ---
Discharge Note Patient discharged to home via wheelchair accompanied by son. Discharge instructions reviewed with patient and/or sales representative wire rope. Mobile pharmacy medications and/or prescriptions provided. Belongings/home medications returned. Post angiogram home care instructions provided and new meds educated to pt. discharge packet provided to pt.
== END 2021-10-11 16:21 | disposition home or self-care (01) ==
LOC: CSU 13:56
PROVIDERS: Admitting Provider Internal Medicine Cardiovascular Disease; PCP Family Medicine; Visit Provider Internal Medicine Cardiovascular Disease
DX: I25.10 Atherosclerotic heart disease of native coronary artery without angina pectoris (principal); R07.9 Chest pain, unspecified; R94.39 Abnormal result of other cardiovascular function study; I35.0 Nonrheumatic aortic (valve) stenosis; K92.2 Gastrointestinal hemorrhage, unspecified; I10 Essential (primary) hypertension; Z79.82 Long term (current) use of aspirin
CPT/HCPCS: 36415; 80048; 85014; 85018; 85025; 85347; 85610; 85730; 93454; C1725; C1760; C1769; C1874; C1887; C1894; C9600; G0378; J1644; J2250; J3010; J3246; J3490; J7030; Q0163; Q9967

== ENCOUNTER → 2021-10-16 14:50 | Outpatient (BNVA) | payer MEDICARE, SELFPAY | PROVIDERS: PCP Family Medicine; Visit Provider Nurse Practitioner Family | DX: I25.10 Atherosclerotic heart disease of native coronary artery without angina pectoris (principal); I35.0 Nonrheumatic aortic (valve) stenosis | CPT/HCPCS: 80048; 85025 ==

== ENCOUNTER 2021-12-17 09:44 | Outpatient (CLI) | payer MEDICARE, SELFPAY ==
--- NOTE | 2021-12-17 09:55 | XR_ITS ---
WS: [id number] Exam: XR DEXA axial skeleton* [id number] Date/Time of Exam: 12/17/2021 10:03 AM Reason For Exam: POST MENOPAUSAL DEXA BONE DENSITOMETRY [employer] The L1-L4 bone mineral density measures 1.379 g/cm2. This corresponds to a T score of 1.7 and Z score of 3.1. Left femoral neck bone mineral density measures 0.646 g/cm2. This corresponds to T score of -2.9 and Z score of -1.2. Right femoral neck bone mineral density measures 0.699 g/cm2. This corresponds to a T score of -2.5 a nd Z score of -0.8. Mean femoral neck bone mineral density measures 0.672 g/cm2. This corresponds to a T score of -2.7 an d Z score of -1.0 XR/XR DEXA axial skeleton* [id number] IMPRESSION: Bone mineral density lies in the osteoporotic range. Refer to detailed summary .
== END 2021-12-17 09:45 | disposition home or self-care (01) ==
LOC: RAD 09:50
PROVIDERS: PCP Family Medicine; Visit Provider Family Medicine
DX: Z78.0 Asymptomatic menopausal state (principal)
CPT/HCPCS: 77080

== ENCOUNTER → 2022-08-19 15:38 | Outpatient (BNVA) | payer MEDICARE, SELFPAY | PROVIDERS: PCP Family Medicine; Visit Provider Internal Medicine Cardiovascular Disease | DX: R06.02 Shortness of breath (principal); I25.10 Atherosclerotic heart disease of native coronary artery without angina pectoris; I10 Essential (primary) hypertension; I35.0 Nonrheumatic aortic (valve) stenosis | CPT/HCPCS: 80048; 83880; 99214 ==

== ENCOUNTER 2022-09-03 10:59 | Outpatient (CLI) | payer MEDICARE, SELFPAY ==
[2022-09-03 11:55] LABS: Blood Urea Nitrogen 20 mg/dL (8-23); Calcium 9.2 mg/dL (8.5-10.5); Carbon Dioxide 23 mmol/L (22-29); Chloride 103 mmol/L (98-107); Glucose 88 mg/dL (65-115); NT Pro B Type Natriuretic Pept 885 pg/mL (0-450); Osmolality Calculated 290 mOsm/kg (285-295); Sodium 139 mmol/L (136-145)
== END 2022-09-03 11:00 | disposition home or self-care (01) ==
LOC: LAB 11:04
PROVIDERS: PCP Family Medicine; Visit Provider Internal Medicine Cardiovascular Disease
DX: I25.10 Atherosclerotic heart disease of native coronary artery without angina pectoris (principal); I10 Essential (primary) hypertension
CPT/HCPCS: 36415; 80048; 83880

== ENCOUNTER 2022-09-16 10:47 | Outpatient (CLI) | payer MEDICARE, SELFPAY ==
[2022-09-16 12:05] LABS: Anion Gap 15.4 (5-19); Blood Urea Nitrogen 11 mg/dL (8-23); Calcium 9.4 mg/dL (8.5-10.5); Carbon Dioxide 26 mmol/L (22-29); Chloride 103 mmol/L (98-107); Glucose 86 mg/dL (65-115); NT Pro B Type Natriuretic Pept 684 pg/mL (0-450); Osmolality Calculated 289 mOsm/kg (285-295); Potassium 4.4 mmol/L (3.5-5.1); Sodium 140 mmol/L (136-145)
== END 2022-09-16 10:48 | disposition home or self-care (01) ==
LOC: LAB 10:50
PROVIDERS: PCP Family Medicine; Visit Provider Internal Medicine Cardiovascular Disease
DX: E87.6 Hypokalemia (principal); I25.10 Atherosclerotic heart disease of native coronary artery without angina pectoris; R07.2 Precordial pain
CPT/HCPCS: 36415; 80048; 83880

== ENCOUNTER 2022-09-26 16:27 | Emergency (ER) | payer MEDICARE, SELFPAY ==
[2022-09-26 16:55] VITALS: BP 201/78; PULSE 78; RESP 13; TEMP 36.6; O2SAT 98; BMI 33.3
--- NOTE | 2022-09-26 18:55 | USR_ITS ---
PROCEDURE INFORMATION: Exam: US Duplex Left Lower Extremity Veins, Limited Exam date and time: 09/26/2022 7:15 PM Age: 76 years old Clinical indication: Leg, lower; Patient HX: Left posterior calf and posterior knee pain today. No history of dvt per patient. Patient has arthritis but states that this pain is atypical. ; Additional info: Swelling TECHNIQUE: Imaging protocol: Real-time Duplex ultrasound of the Left Lower Extremity with 2-D blunt scale, color Doppler flow and spectral waveform analysis with image documentation. Limited exam focused on the left lower extremity veins. COMPARISON: US ROR venous duplex [facility] 01/05/2018 2:58 PM FINDINGS: Left deep veins: Unremarkable. The common femoral, femoral, proximal profunda femoral and popliteal veins are patent without thrombus. Normal Doppler waveforms. Normal compressibility and/or augmentation response. Posterior tibial veins compress, demonstrate color flow and phasic waveform which augments. Peroneal veins are incompressible. Lack color flow. No augmentation. Left superficial veins: Unremarkable. Saphenofemoral junction is patent without thrombus. Soft tissues: Lentiform shaped complex cystic structures in the popliteal fossa most likely representing Hill cyst formation. Largest structure measures 5 cm x 3.2 cm x 0.2 cm. Adjacent structure measures 3.6 cm x 2.4 cm x 1.3 cm. US/CV venous duplex [facility] [id number] IMPRESSION: 1. Positive for left calf deep vein thrombosis involving the peroneal veins. 2. Chronic left popliteal fossa complex cysts.
--- NOTE | 2022-09-26 18:58 | W.ED.EXTPRO ---
HPI - Extremity Problem General: Chief complaint: Extremity Problem,Nontraumatic Stated complaint: PAIN IN LOWER LEFT LEG Time Seen by Provider: 09/26/22 18:43 Source: patient and EMS Mode of arrival: EMS Limitations: no limitations History of Present Illness: 76-year-old female states that she been having left lower leg pain and some slight swelling over the last 2 days. She states that she is concerned she may have a DVT. States she does have chronic joint pain from arthritis that is not atypical but she is worried that since she is having pain in her lower leg that she may have a DVT denies any recent long trips or surgeries denies any chest pain or shortness of breath. Associated symptoms: Deny chest pain, fever(s) or rash Review of Systems Const: Denies: fever(s), chills, body aches or change in appetite Eyes: Denies: blurry vision or eye discomfort ENMT: Denies: throat pain or dental pain Card: Denies: chest pain Resp: Denies: dyspnea GI: Denies: abdominal pain, nausea, vomiting or diarrhea : Denies: dysuria Musc: Reports: extremity pain; Denies: neck pain or back pain Skin/Breast: Denies: rash Neuro: Denies: headache(s) Psych: Denies: depression Isai/Lymph: Denies: easy bruising All/Imm: Denies: urticaria PFSH ED PFSH: Medical History GERD (gastroesophageal reflux disease) GI bleed History of basal cell carcinoma HTN (hypertension) Hyperlipidemia Hypothyroidism Murmur Osteoporosis Papillary thyroid carcinoma Spinal stenosis Family History Mother , Age 63 Myocardial infarct CAD (coronary artery disease) at 63 w/PR Father Myocardial infarct CHF (congestive heart failure) Sister Myocardial infarct Cancer Brother Myocardial infarct Grandmother Myocardial infarct Cancer Grandfather Myocardial infarct Son CAD (coronary artery disease) Son CAD (coronary artery disease) Family/Other CAD (coronary artery disease) Stroke Other Hypertension Denies family history of Diabetes Clotting disorder Dementia Chronic kidney disease (CKD) Suicide Anesthesia complication Bleeding disorder Lung disease Social History Smoking and tobacco status: never smoked Alcohol intake: never Physical Exam Const: COMMON NORMALS: no acute distress, patient oriented x3 and healthy appearing HENMT: COMMON NORMALS: normocephalic and atraumatic HEAD & SCALP: normocephalic and atraumatic Eye: COMMON NORMALS: Equal, round and reactive pupils present and EOMs intact bilaterally PUPIL: Yes Equal, round and reactive pupils present Neck/C-Spine: COMMON NORMALS: full ROM and supple Chest: COMMONS NORMALS: normal inspection of the chest and normal palpation of entire chest wall Resp: COMMON NORMALS: normal respiratory effort, No retractions, No use of accessory muscles and clear to auscultation bilaterally AUSCULTATION: clear to auscultation bilaterally Cardio: COMMON NORMALS: regular rate, regular rhythm and No murmurs present (Cardio) RATE: regular rate RHYTHM: regular rhythm GI: COMMON NORMALS: Normal to inspection, nondistended, normoactive bowel sounds present, Soft to palpation, non-tender and no masses PALPATION: Yes Soft to palpation Extremity: COMMON NORMALS: normal to inspection and full ROM Neuro: COMMON NORMALS: patient oriented x3, moves all extremities and no focal motor deficits Psych: COMMON NORMALS: mental status grossly normal, Normal thought process present and cooperative THOUGHT PROCESS: Normal thought process present Skin: COMMON NORMALS: no rashes or lesions noted and no wounds GENERAL SKIN EXAM: no rashes or lesions noted Course Vital Signs: Vital signs: Vital Signs Temperature 97.9 F 09/26/22 16:55 Pulse Rate 73 09/26/22 19:53 Respiratory Rate 16 09/26/22 19:53 Blood Pressure 166/74 09/26/22 19:53 Pulse Oximetry 96 09/26/22 19:53 Oxygen Delivery Me thod 09/26/22 16:55 MDM - Extremity (Nontraumatic) Medical Decision Making Patient presents here with a DVT in her left lower leg we will start her on Eliquis she is stable for discharge she is to follow-up with PCP and return if worsening. Lab Data Radiology Impressions Venous Duplex 09/26/22 18:55 IMPRESSION: 1. Positive for left calf deep vein thrombosis involving the peroneal veins. 2. Chronic left popliteal fossa complex cysts. ADDENDUM: 09/26/22 2017 Under the deep veins section of the findings, the word unremarkable should be deleted. Discharge Plan Discharge Patient Disposition: Home Clinical Impression: DVT (deep venous thrombosis) Condition: Stable Prescriptions: New Eliquis 5 mg tablet 10 mg PO BID 7 Days Qty: 28 0RF Eliquis 5 mg tablet 5 mg PO BID Qty: 60 0RF Rx Instructions: start after week one of 10mg bid No Action oxybutynin chloride 5 mg tablet extended release 24hr 5 mg PO DAILY levothyroxine 112 mcg capsule 112 mcg PO DAILY raloxifene [Evista] 60 mg tablet 60 mg PO DAILY montelukast 10 mg tablet 10 mg PO DAILY acetaminophen [Tylenol Arthritis Pain] 650 mg tablet extended release 650 mg PO Q12H PRN (Reason: joint pain) nitroglycerin [Nitrostat] 0.4 mg tablet, sublingual 0.4 mg sublingual Q5M PRN (Reason: Chest Pain) Rx Instructions: do not exceed 3 doses per episode cholecalciferol (vitamin D3) 25 mcg (1,000 unit) capsule 25 mcg PO DAILY ascorbic acid (vitamin C) 500 mg tablet 500 mg PO DAILY vitamin B complex [B Complex-Vitamin B12] Tablet 1 tab PO DAILY metoprolol succinate 25 mg tablet extended release 24 hr 12.5 mg PO DAILY hydrocodone-acetaminophen 5-325 mg tablet 1 tab PO TID PRN (Reason: pain) cetirizine [Allergy Relief (cetirizine)] 10 mg tablet 10 mg PO DAILY PRN Combivent Respimat 20-100 mcg/actuation mist 1 puff inhalation Q6H enalapril-hydrochlorothiazide 10-25 mg tablet 0.5 tab PO DAILY Qty: 45 3RF clopidogrel 75 mg tablet 75 mg PO DAILY Qty: 90 4RF atorvastatin 40 mg tablet 40 mg PO DAILY Qty: 90 3RF pantoprazole 40 mg tablet,delayed release (DR/EC) 40 mg PO DAILY 56 Days Qty: 56 2RF furosemide 20 mg tablet 20 mg PO DAILY Qty: 90 3RF potassium chloride 10 mEq tablet extended release 20 meq PO DAILY Qty: 74 3RF Rx Instructions: Take 20meq 4x/day for 2 days, then 20meq daily thereafter isosorbide mononitrate 30 mg tablet extended release 24 hr 15 mg PO BID Qty: 180 3RF spironolactone 25 mg tablet 25 mg PO DAILY Qty: 90 3RF Discharge Orders: Discharge ED (Routine); Ordered 09/26/22 Ordered By: Panda Gamboa Referrals: Fred Gentile MD [Primary Care Provider] - 1-3 days Discharge Diet: Advance as tolerated Discharge Activity: Resume usual activity Patient Instructions: Deep Vein Thrombosis (ED) Coding Level of Care Code ED Front Office Coordinator for Chg Fwd Exam Comprehensive
[2022-09-26 19:53] VITALS: BP 166/74; PULSE 73; RESP 16; O2SAT 96
[2022-09-26 20:36] VITALS: BP 141/71; PULSE 87; RESP 18; O2SAT 95
== END 2022-09-26 20:35 | disposition home or self-care (01) ==
PROVIDERS: Emergency Provider Emergency Medicine; PCP Family Medicine
DX: I82.452 Acute embolism and thrombosis of left peroneal vein (principal); Z79.02 Long term (current) use of antithrombotics/antiplatelets; I10 Essential (primary) hypertension; E78.5 Hyperlipidemia, unspecified
CPT/HCPCS: 93971; 99284

== ENCOUNTER 2022-09-30 12:06 | Outpatient (CLI) | payer MEDICARE, SELFPAY ==
[2022-09-30 13:56] LABS: Anion Gap 17.7 (5-19); Blood Urea Nitrogen 14 mg/dL (8-23); Calcium 9.5 mg/dL (8.5-10.5); Carbon Dioxide 21 mmol/L (22-29); Chloride 102 mmol/L (98-107); Glucose 125 mg/dL (65-115); Osmolality Calculated 286 mOsm/kg (285-295); Potassium 3.7 mmol/L (3.5-5.1); Sodium 137 mmol/L (136-145)
[2022-09-30 14:46] LABS: NT Pro B Type Natriuretic Pept 576 pg/mL (0-450)
== END 2022-09-30 12:07 | disposition home or self-care (01) ==
LOC: LAB 12:10
PROVIDERS: PCP Family Medicine; Visit Provider Internal Medicine Cardiovascular Disease
DX: I25.10 Atherosclerotic heart disease of native coronary artery without angina pectoris (principal); R06.02 Shortness of breath; R07.2 Precordial pain
CPT/HCPCS: 36415; 80048; 83880

== ENCOUNTER 2022-10-08 08:07 | Outpatient (CLI) | payer MEDICARE, SELFPAY ==
--- NOTE | 2022-10-08 08:30 | USCV_ITS ---
Nevin Ahumada Age: 76 Gender: F : 1945 Exam Date: 10/08/2022 08:40 Ordering Phys: Fei Alegre MD ([email or web address]) Technologist: BERNARD [place] [facility] [place]: AORTIC STENOSIS, CHEST PAIN, SHORTNESS OF BREATH BP: 178 / 84 HR: 35 Rhythm: Sinus Technical Quality: Good MEASUREMENTS (Male / Female) Normal Values 2D ECHO LVOT Diameter 2.0 cm LV Ejection Fraction MOD 2C 55.6 % LV Ejection Fraction 2C AL 57.3 % LA Diameter 3.8 cm LA Width 3.4 cm LA Height 5.1 cm RA Width 3.3 cm RA Height 4.2 cm Aorta at Sinotubular Diameter 1.7 cm IVC Diameter 1.4 cm M-MODE Aortic Annulus Diameter 2.2 cm LA Ao Ratio MM 1.8 MV E Point Septal Separation 0.6 cm DOPPLER AV Peak Velocity 284.0 cm/s LVOT Peak Velocity 96.0 cm/s AV Area Cont Eq vti 1.0 cm squared AV Area Cont Eq pk 1.1 cm squared MV Peak Velocity 118.0 cm/s MV Area PHT 3.0 cm squared Mitral E to A Ratio 0.7 MV E' Velocity 43.0 cm/s Mitral E to MV E' Ratio 9.0 Mitral E to LV E' Lateral Ratio 8.0 Mitral E to LV E' Septal Ratio 10.5 TR Peak Velocity 256.2 cm/s TR Peak Gradient 26.3 mmHg TR Mean Velocity 212.5 cm/s TR Mean Gradient 18.5 mmHg TR Velocity Time Integral 86.8 cm TV Peak E Velocity 52.0 cm/s Right Atrial Pressure 3.0 mmHg Pulmonary Artery Systolic Pressu 29.3 mmHg PV Peak Velocity 130.0 cm/s RV Acceleration Time 0.1 s RV Ejection Time 0.3 s RV AcT/ET 0.2 FINDINGS Left Ventricle Normal left ventricular size and systolic function, EF 55 %. No regional wall motion abnormalities. Grade I/IV diastolic dysfunction (abnormal relaxation filling pattern), normal to mildly elevated filling pressures. Right Ventricle The right ventricle is normal in size and function. Right Atrium The right atrium is normal in size. Left Atrium Mildly increased left atrial size. Mitral Valve Moderate mitral valve regurgitation. Aortic Valve Moderate aortic valve stenosis, mean gradient 18.2 mmHg, DELVIN 1 cm squared. Mild aortic valve regurgitation. Tricuspid Valve Trace tricuspid valve regurgitation. Pulmonic Valve Thickened pulmonic valve. Pericardium Normal pericardium without effusion. Aorta Normal ascending aorta dimension. IVC Normal inferior vena cava. CONCLUSIONS Normal left ventricular size and systolic function, EF 55 %. No regional wall motion abnormalities. Grade I/IV diastolic dysfunction (abnormal relaxation filling pattern), normal to mildly elevated filling pressures. Mildly increased left atrial size. Moderate mitral valve regurgitation. Moderate aortic valve stenosis, mean gradient 18.2 mmHg, DELVIN 1 cm squared. Mild aortic valve regurgitation. Peak velocity of 2.84 m/s with a peak gradient of 32 and a mean gradient of 17 mmHg Trace tricuspid valve regurgitation. Estimated pulmonary artery peak systolic pressure of 29 mmHg There is no pericardial effusion. There are no intracardiac masses. Compared to the study from 08/08/2021, there is worsening of the aortic valve stenosis Dr Fei Alegre MD [facility] (Electronically Signed) Final Date: 08 October 2022 19:42 S
== END 2022-10-08 08:08 | disposition home or self-care (01) ==
PROVIDERS: PCP Family Medicine; Visit Provider Internal Medicine Cardiovascular Disease
DX: I08.3 Combined rheumatic disorders of mitral, aortic and tricuspid valves (principal); R06.09 Other forms of dyspnea
CPT/HCPCS: 93306

== ENCOUNTER 2023-01-06 10:45 | Outpatient (CLI) | payer MEDICARE, SELFPAY ==
--- NOTE | 2023-01-06 11:06 | USCV_ITS ---
Nevin Ahumada Age: 77 Gender: F : 1945 Exam Date: 01/06/2023 11:30 Ordering Phys: Fred Gentile MD Technologist: CT Exam Location: [facility] [place] Indication: pain PROCEDURES: Comparison:. 09/26/22 Venous duplex imaging was performed in only the left lower extremity. In addition, the posterior tibial and peroneal trunk were evaluated. On the left side, the common femoral, superficial femoral, profunda femoral, popliteal, posterior tibial, greater saphenous veins, and the peroneal trunk were identified and interrogated in the standard fashion. FINDINGS: Normal 2-D Doppler and augmentation and compressibility throughout the lower extremity venous structures. Additional imaging through the proximal calf veins also reveals no thrombus. Limited evaluation of the greater saphenous vein is patent with no thrombus. Complex, lobulated cystic mass with low level echos and no vascularity with the largest component measuring 2.4 cm in the left popliteal fossa. CONCLUSIONS No DVT left lower extremity. Left popliteal fossa Hill's cyst. Dr. Sera Alfaro DO (Electronically Signed) Final Date: 06 January 2023 12:05 S
== END 2023-01-06 10:46 | disposition home or self-care (01) ==
LOC: RAD 10:49
PROVIDERS: PCP Family Medicine; Visit Provider Family Medicine
DX: M79.605 Pain in left leg (principal); M71.22 Synovial cyst of popliteal space [Baker], left knee
CPT/HCPCS: 93971

== ENCOUNTER → 2023-02-24 13:30 | Outpatient (BNVA) | payer MEDICARE, SELFPAY | PROVIDERS: PCP Family Medicine; Visit Provider Internal Medicine Cardiovascular Disease | DX: R06.09 Other forms of dyspnea (principal); I25.10 Atherosclerotic heart disease of native coronary artery without angina pectoris; I35.0 Nonrheumatic aortic (valve) stenosis; I10 Essential (primary) hypertension; E78.5 Hyperlipidemia, unspecified; M79.605 Pain in left leg | CPT/HCPCS: 80048; 83880; 99214 ==

== ENCOUNTER 2023-03-26 07:09 | Outpatient (CLI) | payer MEDICARE, SELFPAY ==
--- NOTE | 2023-03-26 07:28 | NMCV_ITS ---
NM michelle perf SPECT r/s* [id number] Nevin Ahumada Age: 77 Gender: F : 1945 Exam Date: 03/26/2023 08:23 Ordering Phys: Fei Alegre MD ([email or web address]) Technologist: IMELDA Cheek Exam Location: [facility] Indications: SHORTNESS OF BREATH, CORONARY ANGIOPLASTY STATUS STRESS TEST [facility] IMAGE PROTOCOL Rest/Stress 1 Lexiscan Day Radiopharmaceutical Dose (mCi) Administration Site Administered by Rest: Tc-99m 10.6 IV IMELDA Romeo Sestamibi Stress:Tc-99m 32.8 IV IMELDA Romeo Sestamibi Rest: 26-Mar-2023 60 Discovery 630 Stress: 26-Mar-2023 30 Discovery 630 0.4mg Lexiscan. Images obtained in supine and prone position. SPECT RESULTS Technical Quality: Excellent Raw Data Analysis: Normal Image Corrections: No attenuation or motion correction applied Summed Stress Score: 7 Summed Rest Score: 2 Summed Difference Score: 5 PERFUSION FINDINGS Reduced radiotracer uptake in apical lateral and inferolateral wall that resolved on prone imaging. This is consistent with attenuation artifact in this territory. No evidence of ischemia. FUNCTIONAL RESULTS (calculated via Gated SPECT) Stress Image LV EF (%): 71 Stress EDV (mL):79 TID: 0.91 Stress ESV (mL):23 FUNCTIONAL FINDINGS: There is normal left ventricular systolic function. IMPRESSIONS 1. Attenuation artifact noted in the left circumflex artery territory. No evidence of ischemia 2. LV systolic function is normal Festus Loyola MD (Electronically Signed) Final Date: 29 March 2023 12:36 S
--- NOTE | 2023-03-26 07:28 | ECG_ITS ---
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 Interpretive Statements NAME OF STUDY: LEXISCAN SESTAMIBI STRESS TEST INDICATION: Exertional shortness of Breath PROCEDURE: At the baseline, the blood pressure was 181/74 mmHg with a heart rate of 65 bpm. The electrocardiogram showed sinus rhythm with frequent isolated PVCs. The Lexiscan was infused over a period of 20 seconds. A total of 0.4 milligrams of Lexiscan was infused. The stress phase was continued for a total of 5 minutes. Heart rate at the end of the stress phase was 86 bpm with a blood pressure 165/68 mmHg. The EKG at the peak infusion revealed sinus rhythm with no significant ST-T wave changes. Sestamibi was injected 20 seconds after the Lexiscan infusion. Blood pressure at the end of the recovery phase was 191/69 mmHg with a heart rate of 92 beats per minute. CONCLUSION: 1. No significant EKG changes with the LexiScan infusion. 2. No LexiScan induced chest pain or cardiac arrhythmia. 3. Normal blood pressure and heart rate response. 4. Sestamibi/sestamibi perfusion scan pending; see separate report. Electronically Signed On 03-28-2023 13:10:13 CDT by Gemini Haddad M.D. [id number]
[2023-03-26 07:47] VITALS: BMI 32.3
[2023-03-26] MEDS: regadenoson 0.4 Mg/5 ml Syringe IVP (09:08)
[2023-03-26 09:19] VITALS: BP 186/62; PULSE 90
== END 2023-03-26 07:10 | disposition home or self-care (01) ==
PROVIDERS: PCP Family Medicine; Visit Provider Internal Medicine Cardiovascular Disease
DX: R06.02 Shortness of breath (principal); Z95.5 Presence of coronary angioplasty implant and graft
CPT/HCPCS: 36415; 78452; 93017; 96374; A9500; J2785

== ENCOUNTER 2023-03-28 08:40 | Outpatient (CLI) | payer MEDICARE, SELFPAY ==
--- NOTE | 2023-03-28 09:30 | USCV_ITS ---
Nevin Ahumada Age: 77 Gender: F : 1945 Exam Date: 03/28/2023 09:06 Ordering Phys: Fei Alegre MD ([email or web address]) Technologist: CASIMIRO [place] [facility] [place]ication: Pain and Swelling. Pop cyst seen in prior HISTORY: Lower extremity swelling. Lower extremity pain. PROCEDURES: Venous duplex imaging was performed in only the left lower extremity. The following venous structures were evaluated: common femoral vein, profunda vein, proximal portion of the greater saphenous vein, superficial femoral vein, and the popliteal vein. In addition, the posterior tibial and peroneal trunk were evaluated. Serial compression, augmentation maneuvers, and spectral Doppler flow evaluation were performed. FINDINGS: No evidence of DVT seen in any vessel visualized at this time. Cyst noted in popliteal area. Seen on prior CONCLUSIONS No evidence of left lower extremity DVT. Lobulated Popliteal cyst measuring 2.8 x 2.5cm similar to 01/16 Feroz Valdivia MD (Electronically Signed) Final Date: 28 March 2023 12:05 S
== END 2023-03-28 08:41 | disposition home or self-care (01) ==
PROVIDERS: PCP Family Medicine; Visit Provider Internal Medicine Cardiovascular Disease
DX: R06.02 Shortness of breath (principal); R06.09 Other forms of dyspnea; M79.605 Pain in left leg; M79.89 Other specified soft tissue disorders; M71.22 Synovial cyst of popliteal space [Baker], left knee
CPT/HCPCS: 80048; 83880; 93971

== ENCOUNTER → 2023-09-08 14:59 | Outpatient (BNVA) | payer MEDICARE, SELFPAY | PROVIDERS: PCP Family Medicine; Visit Provider Internal Medicine Cardiovascular Disease | DX: R07.9 Chest pain, unspecified (principal); I48.91 Unspecified atrial fibrillation; R94.31 Abnormal electrocardiogram [ECG] [EKG]; I25.10 Atherosclerotic heart disease of native coronary artery without angina pectoris; R06.09 Other forms of dyspnea; R07.2 Precordial pain; I35.0 Nonrheumatic aortic (valve) stenosis; I10 Essential (primary) hypertension; E78.5 Hyperlipidemia, unspecified; M79.605 Pain in left leg | CPT/HCPCS: 36415; 80048; 83735; 83880; 93005; 99214 ==

== ENCOUNTER 2023-09-15 08:12 | Outpatient (CLI) | payer MEDICARE, SELFPAY ==
--- NOTE | 2023-09-15 08:45 | USCV_ITS ---
Nevin Ahumada Age: 77 Gender: F : 1945 Exam Date: 09/15/2023 08:41 Ordering Phys: Fei Alegre MD ([email or web address]) Technologist: CT Exam Location: [facility] [place] Indication: as, mr BP: 160 / 88 HR: 59 Rhythm: Sinus Technical Quality: Adequate MEASUREMENTS (Male / Female) Normal Values 2D ECHO LV Chamber Size 4.6 cm RV Chamber Size 3.4 cm LVOT Diameter 2.0 cm LV Ejection Fraction MOD 2C 77.8 % LV Ejection Fraction 2C AL 78.7 % LA Diameter 4.5 cm LA Width 4.4 cm LA Height 5.4 cm RA Width 4.5 cm RA Height 4.4 cm Aorta at Sinotubular Diameter 2.1 cm IVC Diameter 1.5 cm M-MODE Aortic Annulus Diameter 3.0 cm LA Ao Ratio MM 1.6 MV E Point Septal Separation 0.5 cm DOPPLER AV Peak Velocity 313.0 cm/s LVOT Peak Velocity 99.0 cm/s AV Area Cont Eq vti 1.1 cm squared AV Area Cont Eq pk 1.0 cm squared MV E' Velocity 11.0 cm/s TR Peak Velocity 191.7 cm/s TR Peak Gradient 14.7 mmHg TV Peak E Velocity 82.0 cm/s Right Atrial Pressure 3.0 mmHg Pulmonary Artery Systolic Pressu 17.7 mmHg PV Peak Velocity 160.0 cm/s FINDINGS Left Ventricle Normal left ventricular size and systolic function, EF 71 %. Mild left ventricular hypertrophy. The basal inferior wall segment was found to be slightly dyskinetic Right Ventricle The right ventricle is normal in size and function. Right Atrium Upper limit of normal size Left Atrium Mildly increased left atrial size. Mitral Valve Mild-moderate mitral valve regurgitation. Aortic Valve Moderate aortic valve stenosis, mean gradient 19.4 mmHg, DELVIN 1.1 cm squared. Peak velocity of 3.13 m/s with a peak gradient of 39 and a mean gradient of 19 mm of Hg. Mild aortic valve regurgitation. Tricuspid Valve No gross abnormalities noted Pulmonic Valve No gross abnormalities noted Pericardium Normal pericardium without effusion. Aorta Normal ascending aorta dimension. IVC Normal IVC dimension with <50% respiratory change of the inferior vena cava. CONCLUSIONS Normal left ventricular size and systolic function, EF 71 %. Mild left ventricular hypertrophy. The basal inferior wall segment was found to be slightly dyskinetic. Mildly increased left atrial size. Mild-moderate mitral valve regurgitation. Moderate aortic valve stenosis, mean gradient 19.4 mmHg, DELVIN 1.1 cm squared. Peak velocity of 3.13 m/s with a peak gradient of 39 and a mean gradient of 19 mm of Hg. Mild aortic valve regurgitation. There is no pericardial effusion. There are no intracardiac masses. Compared to the study from 12/09/2021, there may not be a significant change Dr Fei Alegre MD [facility] (Electronically Signed) Final Date: 15 September 2023 17:45 S
== END 2023-09-15 08:13 | disposition home or self-care (01) ==
LOC: RAD 08:13
PROVIDERS: PCP Family Medicine; Visit Provider Internal Medicine Cardiovascular Disease
DX: I35.2 Nonrheumatic aortic (valve) stenosis with insufficiency (principal); R06.02 Shortness of breath; R07.9 Chest pain, unspecified; I34.0 Nonrheumatic mitral (valve) insufficiency; I51.7 Cardiomegaly
CPT/HCPCS: 93306

== ENCOUNTER → 2024-03-16 14:23 | Outpatient (BNVA) | payer MEDICARE, SELFPAY | PROVIDERS: PCP Family Medicine; Visit Provider Internal Medicine Cardiovascular Disease | DX: R07.9 Chest pain, unspecified (principal); I25.10 Atherosclerotic heart disease of native coronary artery without angina pectoris; R05.3 Chronic cough; I35.0 Nonrheumatic aortic (valve) stenosis; I10 Essential (primary) hypertension; R06.09 Other forms of dyspnea; R53.83 Other fatigue; I49.8 Other specified cardiac arrhythmias | CPT/HCPCS: 93005; 99214 ==

== ENCOUNTER → 2024-10-05 14:23 | Outpatient (BNVA) | payer MEDICARE, SELFPAY | PROVIDERS: PCP Family Medicine; Visit Provider Internal Medicine Cardiovascular Disease | DX: I25.119 Atherosclerotic heart disease of native coronary artery with unspecified angina pectoris (principal); I10 Essential (primary) hypertension; I35.0 Nonrheumatic aortic (valve) stenosis | CPT/HCPCS: 99204 ==

== ENCOUNTER 2024-10-22 10:39 | Outpatient (CLI) | payer MEDICARE, SELFPAY ==
[2024-10-22 11:19] LABS: Basophils # 0.1 10^3/uL (0.0-0.1); Basophils % 0.8 %; Eosinophils # 0.2 10^3/uL (0.0-0.8); Eosinophils % 2.3 %; Lymphocytes % 41.3 %; Mean Corpuscular HGB Conc 31.4 g/dL (30-55); Mean Corpuscular Hemoglobin 28.9 pg (27-33); Mean Corpuscular Volume 91.9 fl (85-98); Mean Platelet Volume 9.7 fL (7.4-10.4); Monocytes # 0.5 10^3/uL (0.2-0.9); Monocytes % 6.3 %; Neutrophils # 3.62 10^3/uL (1.8-7.7); Neutrophils % 49.2 %; Nucleated Red Blood Cells % 0 %; Platelet Count 318 10^3/cmm (157-399); Red Blood Count 4.57 10^6/uL (3.85-5.65); Red Cell Distribution Width 14.2 % (12.1-15.1); White Blood Count 7.36 10^3/uL (3.29-11.43)
[2024-10-22 11:29] LABS: Anion Gap 14.8 (5-19); Blood Urea Nitrogen 12 mg/dL (8-23); Calcium 9.4 mg/dL (8.5-10.5); Carbon Dioxide 27 mmol/L (22-29); Chloride 101 mmol/L (98-107); Glucose 112 mg/dL (65-115); Osmolality Calculated 289 mOsm/kg (285-295); Potassium 3.8 mmol/L (3.5-5.1); Sodium 139 mmol/L (136-145)
[2024-10-22 11:34] LABS: INR 0.89 (0.83-1.21); Prothrombin Time (Patient) 12.3 Seconds (12.0-15.1)
== END 2024-10-22 10:40 | disposition home or self-care (01) ==
LOC: LAB 10:40
PROVIDERS: PCP Family Medicine; Visit Provider Internal Medicine Cardiovascular Disease
DX: R07.2 Precordial pain (principal); I35.0 Nonrheumatic aortic (valve) stenosis; I10 Essential (primary) hypertension; R06.02 Shortness of breath; R58 Hemorrhage, not elsewhere classified
CPT/HCPCS: 80048; 85025; 85610

== ENCOUNTER → 2024-11-30 09:43 | Outpatient (BNVA) | payer MEDICARE, SELFPAY | PROVIDERS: PCP Family Medicine; Visit Provider Nurse Practitioner Family | DX: R07.2 Precordial pain (principal); I35.0 Nonrheumatic aortic (valve) stenosis; I10 Essential (primary) hypertension; E78.5 Hyperlipidemia, unspecified; I25.118 Atherosclerotic heart disease of native coronary artery with other forms of angina pectoris | CPT/HCPCS: 99214 ==

== ENCOUNTER 2024-12-01 07:12 | Outpatient (CLI) | payer MEDICARE, SELFPAY ==
--- NOTE | 2024-11-30 12:39 | PC.NURSE ---
Called patient x 2 and left 2 messages to call back.
[2024-12-01] VITALS (10 sets, daily range): BP systolic 125–192; BP diastolic 56–78; PULSE 60–76; RESP 14–19; TEMP 36.7; O2SAT 96–98; BMI 33.9
--- NOTE | 2024-12-01 07:30 | XACV_ITS ---
Exam Room: 2 Ht: 150 cm Wt: 76 kg BSA: 1.82 m2 Gender: Female : 1945 Any Known Allergies: Other Exam Priority: Routine Procedure(s): Procedure Description: Diagnostic procedure Procedure Description: Left Heart Catheterization Procedure Description: Left ventriculography Procedure Description: Miscellaneous Procedure Description: Perclose Procedure Description: Coronary Angiography Gurpreet MARIO; Diagnostic Cath Status: Elective Diagnostic Findings * Left Main has no disease. * Circumflex has no disease. * Proximal Left Anterior Descending: moderate 50% stenosis, MIKA: 3 flow. * Mid Left Anterior Descending: mild 40% stenosis, MIKA: 3 flow. * Proximal Right Coronary Artery to Mid Right Coronary Artery: mild 40% stenosis, MIKA: 3 flow. * Coronary angiography shows right dominance. Conclusions 1. There is moderate coronary artery disease with two vessel disease. 2. All patel are normal. 3. Normal left ventricular systolic function. Ejection fraction of 65%. Recommendations * Continue current medical management and risk factor modification. Diagnostic RX Recommendation: medical therapy and/or counseling Ventriculography Ejection Fraction: 65.0 % Pressures Phase:Rest AO : 233 / 110 ( 115 ) @ 9:43:00 AM 117 / 65 ( 89 ) @ 9:43:00 AM 162 / 46 ( 92 ) @ 9:51:00 AM 162 / 47 ( 92 ) @ 9:51:00 AM LV : 175 / -12 / 21 @ 9:50:00 AM 171 / -12 / 20 @ 9:51:00 AM 174 / -13 / 20 @ 9:51:00 AM Saturations Phase:Rest AO : 99 @ 9:43:00 AM Valves Phase:DefaultPhase AV : 15.0 @ 10:20:23 AM AV Mean Gradient: 17.0 @ 10:20:23 AM Clinical Evaluation EBL: 5mL-10mL Procedural Details Procedure Consent Obtained. Current Diagnosis : Chest Pain. Pre-Procedure Time Out. Identified patient by full name and date of as verbalized by the patient/guarantor. Does the consent match the physician's order: Yes. Accurate & Complete Informed Consent: Yes. Inpatient/Outpatient History & Physical on Chart: Yes. If H&P is completed, is and addenduem needed: No; If yes, is the addendum complete: N/A. Visualize and Verify Site with Patient/Guarantor: N/A. Relevant Radiology Images available: Yes. Pre-op teaching completed and patient verbalized understanding. The risks, benefits, and alternatives of sedation and/or procedure were discussed by physician. The patient agrees to continue. Procedure started. [facility] [place] Clinical Fraility Score: 3: Managing Well. Creative Arts Therapist Indications: Other. Chest Pain Symptom Assessment: Atypical Angina. Correct patient, site and procedure confirmed by cath team. Current diagnosis: Chest Pain. PERRLA. Strong, equal hand welder plastic bilaterally. Lungs clear x 5 lobes. IV Site on Arrival: 20 gauge in the right anticubital. IV Fluids: 0.9% NaCl at KVO. 0 mL infused prior to photographic laboratory supervisor. Pre Procedural Pulses: bilateral dorsalis pedis was Doppled. Pre Procedural Pulses: bilateral posterior tibial was Doppled. Oxygen started at 2liters/min via nasal canula. right groin was prepped with chloroprep then draped in the usual sterile fashion. right radial was prepped with chloroprep then draped in the usual sterile fashion. Baseline sample Acquired. HR: 71 BPM. Physician arrived. Physician scrubbed in. Immediate Pre-Procedure Time Out. Correct Patient: Yes; Correct Procedure: Yes; Correct Site: Yes; Correct Patient Position: Yes; Correct Supplies: Yes; Dried Flammable Prep: Yes; Blood Products Available: N/A;. Lidocaine 1% infiltrated to the right radial. Ultrasound being used to obtain access. Arterial access obtained. Wire unable to advance. Wire and needle removed. Manual pressure held on access site. TR band placed. Hemostasis obtained. Lidocaine 1% infiltrated to the right groin. Arterial access obtained with micropuncture set. A 5 belgian JL4 catheter in over wire. Multiple views taken of left coronary artery. Catheter removed over the standard wire. A 5 belgian JR4 catheter in over wire. Multiple views taken of right coronary artery. Catheter removed over the standard wire. A 5 belgian Angled Pig catheter in over wire. EDP Sample taken: LV 175/-13,21; HR: 63 BPM; SpO2: 99%. LV gram performed in GAN @ 10 mL/second for a total of 30 mL. EDP Sample taken: LV 171/-13,20; HR: 65 BPM; SpO2: 99%. Pullback taken: LV 174/-14,20; AO 162/46(92); Mean: 17mmHg, Peak to Peak: 15mmHg, SEP: 23sec/min; HR: 66 BPM; SpO2: 99%. Catheter removed over the standard wire. A Right femoral angiogram was performed to determine safe placement of closure device. Lidocaine 1% infiltrated to the right groin. A Perclose (GigsJam) was successful obtaining hemostatsis at the Right Femoral artery insertion site. Medication's Wasted: Other = Hydralazine 10 mg. Post Procedure: Pulses reassessed and unchanged. PERRLA. Strong, equal hand welder plastic bilaterally. No VTE prophylaxis required. Total IV fluids: 50 mL. Post-op diagnosis: Non-obstructive CAD. Complications: None. Estimated blood loss: 5mL-10mL. Responsiveness - Normal response to verbal stimuli; alert and oriented, PERRLA. Airway - Unaffected, no intervention required; spontaneous ventilation. Circulation: W/N/L, pulses unchanged. Nausea/Vomiting: No. Procedure completed. Vital chart was stopped. Patient transferred by stretcher to CPRU. Access Site Site: Right Femoral artery Sheath Size: 6 Fr Hemostasis Method: Perclose (GigsJam) Hemostasis Success: Successful Procedure Medications Start: 9:08 AM Stop: 9:08 AM Medication: Versed Amount: 1 mg Route: I.V. Start: 9:08 AM Stop: 9:08 AM Medication: Fentanyl Amount: 50 mcg Route: I.V. Start: 9:14 AM Stop: 9:14 AM Medication: Hydralazine Amount: 10 mg Route: I.V. Start: 9:36 AM Stop: 9:36 AM Medication: Versed 1 mg and Fentanyl 25 mcg Amount: 1 Route: I.V. Start: 10:02 AM Stop: 10:02 AM Medication: Fentanyl Amount: 25 mcg Route: I.V. I, the attending physician, have reviewed and verified all procedure medications. Yes, all medications given per verbal order History/Risk Factors Hypertension: Yes Dyslipidemia: Yes Peripheral Arterial Disease (PAD): No Myocardial Infarction (PA): No Obesity: No Renal Disease: No Tobacco Use: Never Prior Interventions PCI: Yes CABG: No Valve Surgery: No Date of PCI: 10/09/2021 Report Signatures Finalized by King Vázquez MD on 12/11/2024 05:01 PM
[2024-12-01] MEDS: diphenhydrAMINE 50 mg Capsule PO (07:35)
[2024-12-01] MEDS: aspirin 325 mg Tablet PO (07:35)
[2024-12-01 07:59] LABS: Basophils # 0.1 10^3/uL (0.0-0.1); Basophils % 0.7 %; Eosinophils # 0.2 10^3/uL (0.0-0.8); Eosinophils % 2.7 %; Hematocrit 40.2 % (36-47); Lymphocytes # 2.4 10^3/uL (0.8-4.8); Lymphocytes % 26.8 %; Mean Corpuscular HGB Conc 31.8 g/dL (30-55); Mean Corpuscular Hemoglobin 29.4 pg (27-33); Mean Corpuscular Volume 92.2 fl (85-98); Mean Platelet Volume 9.4 fL (7.4-10.4); Monocytes # 0.5 10^3/uL (0.2-0.9); Monocytes % 5.6 %; Neutrophils # 5.73 10^3/uL (1.8-7.7); Nucleated Red Blood Cells % 0 %; Platelet Count 343 10^3/cmm (157-399); Red Blood Count 4.36 10^6/uL (3.85-5.65); Red Cell Distribution Width 14.6 % (12.1-15.1); White Blood Count 8.95 10^3/uL (3.29-11.43)
[2024-12-01 08:04] LABS: Anion Gap 15.5 (5-19); Blood Urea Nitrogen 17 mg/dL (8-23); Carbon Dioxide 27 mmol/L (22-29); Chloride 104 mmol/L (98-107); Glucose 104 mg/dL (65-115); Osmolality Calculated 298 mOsm/kg (285-295); Potassium 3.5 mmol/L (3.5-5.1); Sodium 143 mmol/L (136-145)
--- NOTE | 2024-12-01 09:00 | W.PM.OPSUD ---
Surgery/Procedure H&P Update DATE OF PROCEDURE: December 01, 2024 DATE H&P PERFORMED: 11/30/24 H&P UPDATE INFORMATION: I have reviewed H&P completed within last 30 days, I have examined patient prior to procedure and No changes to prior documentation PREOP DIAGNOSIS: Preop for aortic valve, chest pain suggestive of escalating angina PRIMARY INDICATION FOR PROCEDURE: 78-year-old female past medical history significant for coronary artery disease has been struggling with worsening of angina and despite of optimization of medicine, at the same time patient was noted to have moderate to severe aortic valve stenosis. That measurement was based on echocardiogram performed in 2022 next echocardiogram is scheduled for next month. It is the reason patient is brought in today for preop valvular assessment of the coronary bed at the same time because of the fact she is having worsening of angina despite of optimization of medicine therefore would like to proceed with left heart cath and PCI if indicated. Patient has been explained all risk-benefit and alternative for the procedure. She understand risk for stroke major bleed urgent emergent bypass surgery vascular surgery vascular injury contrast induced nephropathy and allergic reaction or untoward effect of the conscious sedation. Patient fully understood and would like to proceed with it. PLANNED PROCEDURE: Operation Date: 12/01/24 08:30 Proposed Procedures p Cardiac Catheterization - LHC w/wo LV & Coros(Left) - King Vázquez MD PATIENT REASSESSED PRIOR TO SEDATION, WITH NO CHANGE NOTED: Yes PHYSICAL EXAM: alert, oriented x 3, clear to auscultation bilaterally and regular rate & rhythm AIRWAY EVAL/ANESTHESIA PLAN: ASA II, Risks, benefits & alternatives of sedation and/or procedure discussed and Patient agrees to continue as planned
--- NOTE | 2024-12-01 10:30 | SUR.PHASEII ---
Letting the air out of the TR band per protocol.
--- NOTE | 2024-12-01 10:40 | SUR.PHASEII ---
Received the patient back from the photofinishing laboratory worker via bed s/p Diagnostic [facility]. Patient drowsy. Awakens to verbal stimuli. A & 0 x 3. nurse monitoring placed and vital signs obtained. Right groin s/p Perclose closure. Site soft with no bleeding or hematoma noted. Doppled pedal and tibial pulses. Dressing D/I. Right radial access site with TR band intact. Site soft with no bleeding or hematoma noted. Will start letting the air out per protocol. Palpable radial pulse. No other assessment changes noted from pre cath assessment. Can ambulate after 2 hours per physician order. Family at bedside. No concerns voiced at this time. Plan for DC later this afternoon.
--- NOTE | 2024-12-01 11:30 | SUR.PHASEII ---
TR band off. Site cleansed with warm water and patted dry. A large band aid was applied to the site and loosely secured with coban. Patient tolerated well. Plan to ambulate at 1230. No concerns voiced at this time.
--- NOTE | 2024-12-01 12:30 | SUR.PHASEII ---
Patient ambulated around the unit. She tolerated well. She used the restroom and went back to sit in the chair for lunch. No assessment changes noted.
== END 2024-12-01 07:13 | disposition home or self-care (01) ==
PROVIDERS: PCP Family Medicine; Visit Provider Internal Medicine Cardiovascular Disease
DX: I25.10 Atherosclerotic heart disease of native coronary artery without angina pectoris (principal); I10 Essential (primary) hypertension; E78.5 Hyperlipidemia, unspecified; E03.9 Hypothyroidism, unspecified; M81.0 Age-related osteoporosis without current pathological fracture; I35.0 Nonrheumatic aortic (valve) stenosis; Z82.49 Family history of ischemic heart disease and other diseases of the circulatory system
CPT/HCPCS: 36415; 80048; 85025; 93458; 96374; 99152; 99153; C1760; C1769; C1887; C1894; G0269; J0360; J1644; J2250; J3010; J3490; J7030; Q0163; Q9967

== ENCOUNTER → 2024-12-22 08:08 | Outpatient (BNVA) | payer MEDICARE, SELFPAY | PROVIDERS: PCP Family Medicine; Visit Provider Nurse Practitioner Family | DX: I25.10 Atherosclerotic heart disease of native coronary artery without angina pectoris (principal); I10 Essential (primary) hypertension; E78.5 Hyperlipidemia, unspecified; Z87.891 Personal history of nicotine dependence | CPT/HCPCS: 36415; 80048; 99214 ==

== ENCOUNTER 2024-12-27 13:13 | Outpatient (CLI) | payer MEDICARE, SELFPAY ==
--- NOTE | 2024-12-27 13:30 | USCV_ITS ---
Nevin Ahumada Age: 79 Gender: F : 1945 Exam Date: 12/27/2024 13:35 Ordering Phys: King Vázquez MD ([email or web address]) Technologist: CT [place] [facility] [place]ication: as BP: 199 / 84 HR: 67 Rhythm: Sinus Technical Quality: Adequate MEASUREMENTS (Male / Female) Normal Values 2D ECHO LVOT Diameter 1.9 cm LV Ejection Fraction MOD 4C 57.4 % LV Ejection Fraction MOD 2C 68.0 % LV Ejection Fraction 2C AL 68.0 % LA Diameter 4.4 cm RA Systolic Volume 4C AL 38.5 ml RA Systolic Volume 4C MOD 39.1 ml LA Sys Volume AL 67.8 cm cubed LA Sys Volume Index AL 37.7 cm cubed/m squared Aorta at Sinotubular Diameter 1.8 cm IVC Diameter 1.4 cm M-MODE LA Ao Ratio MM 1.6 AV Cusp Separation MM 1.0 cm DOPPLER AV Peak Velocity 305.0 cm/s LVOT Peak Velocity 96.0 cm/s AV Area Cont Eq vti 0.9 cm squared AV Area Cont Eq pk 0.9 cm squared MV Peak Velocity 101.0 cm/s MV Area PHT 3.6 cm squared Mitral E to A Ratio 0.9 TV Peak Velocity 273.5 cm/s TR Peak Velocity 278.0 cm/s TR Peak Gradient 30.9 mmHg TV Peak E Velocity 101.0 cm/s PV Peak Velocity 107.5 cm/s FINDINGS Left Ventricle Mildly increased left ventricular cavity size. Normal left ventricular systolic function. Left ventricular ejection fraction is estimated at 50-55 %. Grade I/IV diastolic dysfunction (abnormal relaxation filling pattern), normal to mildly elevated filling pressures. Right Ventricle The right ventricle is normal in size and function. Right Atrium The right atrium is normal in size. Left Atrium Moderately increased left atrial size. Mitral Valve Mildly thickened mitral valve. No mitral valve stenosis. Moderate-severe mitral valve regurgitation. Aortic Valve Severe aortic valve calcification. Moderate to severe aortic valve stenosis, mean gradient 21 mmHg, DELVIN 0.85 cm squared. Mild aortic valve regurgitation. Tricuspid Valve Mild tricuspid valve regurgitation. Pulmonic Valve Trace pulmonary valve regurgitation. Pericardium Normal pericardium without effusion. Aorta Normal ascending aorta dimension. IVC The inferior vena cava appears normal. CONCLUSIONS Mildly increased left ventricular cavity size. Normal left ventricular systolic function. Left ventricular ejection fraction is estimated at 50-55 %. Grade I/IV diastolic dysfunction (abnormal relaxation filling pattern), normal to mildly elevated filling pressures. Moderately increased left atrial size. Severe aortic valve calcification. Moderate to severe aortic valve stenosis, mean gradient 21 mmHg, DELVIN 0.85 cm squared. Mild aortic valve regurgitation. Mild tricuspid valve regurgitation. There is no pericardial effusion. Right atrial pressure is around 5 mm of mercury. King Vázquez MD (Electronically Signed) Final Date: 27 December 2024 20:13 S
== END 2024-12-27 13:14 | disposition home or self-care (01) ==
LOC: RAD 13:14
PROVIDERS: PCP Family Medicine; Visit Provider Internal Medicine Cardiovascular Disease
DX: I35.0 Nonrheumatic aortic (valve) stenosis (principal); R93.1 Abnormal findings on diagnostic imaging of heart and coronary circulation; I34.0 Nonrheumatic mitral (valve) insufficiency; I35.8 Other nonrheumatic aortic valve disorders; I35.1 Nonrheumatic aortic (valve) insufficiency; I07.1 Rheumatic tricuspid insufficiency
CPT/HCPCS: 93306

== ENCOUNTER → 2025-04-05 09:39 | Outpatient (BNVA) | payer MEDICARE, SELFPAY | PROVIDERS: PCP Family Medicine; Visit Provider Internal Medicine Cardiovascular Disease | DX: I25.10 Atherosclerotic heart disease of native coronary artery without angina pectoris (principal); I35.0 Nonrheumatic aortic (valve) stenosis; I10 Essential (primary) hypertension; Z98.61 Coronary angioplasty status; Z87.891 Personal history of nicotine dependence | CPT/HCPCS: 99214 ==

== ENCOUNTER → 2025-10-10 10:01 | Outpatient (BNVA) | payer MEDICARE, SELFPAY | PROVIDERS: PCP Family Medicine; Visit Provider Internal Medicine Cardiovascular Disease | DX: I25.10 Atherosclerotic heart disease of native coronary artery without angina pectoris (principal); Z95.2 Presence of prosthetic heart valve; Z87.891 Personal history of nicotine dependence | CPT/HCPCS: 99214 ==